=== PATIENT | female | born 1965 | race Caucasian/White ===

== ENCOUNTER 2021-08-15 18:04 | Emergency (ER) | payer OTHER, SELFPAY ==
[2021-08-15 18:20] VITALS: BP 140/80; PULSE 93; RESP 20; TEMP 37.2; O2SAT 94; BMI 43.2
--- NOTE | 2021-08-15 19:23 | CTR_ITS ---
PROCEDURE INFORMATION: Exam: CT Abdomen And Pelvis With Contrast Exam date and time: 08/15/2021 7:23 PM Age: 56 years old Clinical indication: Abdominal pain; Localized; Prior surgery; Surgery date: 6+ months; Surgery type: Hyst, gb; Patient HX: C/O lower abd/pelvic pain w nausea and diarrhea; Additional info: Abd pain TECHNIQUE: Imaging protocol: Computed tomography of the abdomen and pelvis with contrast. Sagittal and coronal reformatted images were created and reviewed. Radiation optimization: All CT scans at this facility use at least one of these dose optimization techniques: automated exposure control; mA and/or kV adjustment per patient size (includes targeted exams where dose is matched to clinical indication); or iterative reconstruction. Contrast material: OMNI 300; Contrast volume: 95 ml; Contrast route: INTRAVENOUS (IV); COMPARISON: No relevant prior studies available. RADIATION DOSE METRICS: Total DLP (mGy-cm): 1822.12 FINDINGS: Lungs: Visualized lungs are clear. Pleural spaces: No pleural effusion. Heart: Visualized portions of the heart are unremarkable. Liver: Diffuse, moderately decreased density in the liver. Findings are consistent with moderate fatty infiltration. Gallbladder and bile ducts: Patient has had a previous cholecystectomy. No biliary ductal dilatation. Pancreas: The pancreas is unremarkable. No pancreatic ductal dilatation. Spleen: The spleen is unremarkable. Adrenal glands: The right and left adrenal glands are unremarkable. Kidneys and ureters: The right and left kidneys are unremarkable. The right and left ureters are unremarkable. Stomach and bowel: Numerous diverticula in the sigmoid colon. No evidence for diverticulitis. No acute abnormality in the small bowel. The stomach is collapsed, which can limit evaluation. No focal abnormality in the stomach otherwise. Appendix: The appendix is visualized and is unremarkable. No findings to suggest acute appendicitis. Intraperitoneal space: No free intraperitoneal air. No ascites. No loculated fluid collections to suggest an abscess. Vasculature: Mild atherosclerotic changes in the visualized arteries. No evidence for aortic aneurysm or aortic dissection. Hepatic veins, portal veins, splenic vein, and SMV are patent. Lymph nodes: No lymphadenopathy. Urinary bladder: The bladder is incompletely filled, which can limit evaluation. No focal abnormality in the bladder however. Reproductive: Patient has had a previous hysterectomy. The ovaries are not definitely visualized, not an expected in a postmenopausal female. This may be due to ovarian atrophy. Alternatively, the patient may have had a previous bilateral oophorectomy. Bones/joints: Degenerative changes in the spine and hips. Soft tissues: No acute abnormality in the extra-abdominal soft tissues. CT/CT abdomen pelvis w con* [id number] IMPRESSION: 1. No acute abnormality in the abdomen or pelvis. 2. Moderate fatty infiltration of the liver. 3. Sigmoid diverticulosis. No evidence for diverticulitis. 4. Incidental/nonacute findings are listed in the report.
--- NOTE | 2021-08-15 19:24 | W.ED.ABDPA2 ---
HPI - Abdominal Pain General: Chief Complaint: Abdominal Pain Stated Complaint: abd pain Time Seen by Provider: 08/15/21 19:20 Source: patient Mode of arrival: ambulatory Limitations: no limitations History of Present Illness: HPI narrative: 56-year-old female states has been having left lower quadrant abdominal pain mild diarrhea over the last 2 days. States she had diverticulitis in the past and this feels similar. States pain is sharp in nature rates it a 7 out of 10. Denies any vomiting or improving or worsening factors. She has had some diarrhea. Denies any fevers. Denies any dysuria. Associated Symptoms: Reports diarrhea; Denies chills, dysuria and fever(s) Review of Systems Const: Denies: fever(s), chills, body aches or change in appetite Eyes: Denies: blurry vision or eye discomfort ENMT: Denies: throat pain or dental pain Card: Denies: chest pain Resp: Denies: dyspnea GI: Reports: abdominal pain and diarrhea : Denies: dysuria Musc: Denies: neck pain or back pain Skin/Breast: Denies: rash Neuro: Denies: headache(s) Psych: Denies: depression José Miguel/Lymph: Denies: easy bruising All/Imm: Denies: urticaria PFSH ED PFSH: Social History (Updated 08/07/21 @ 14:39 by Seema Wakefield LPN) Smoking and tobacco status: never smoked Physical Exam Const: COMMON NORMALS: no acute distress, patient oriented x3 and healthy appearing HENMT: COMMON NORMALS: normocephalic and atraumatic HEAD & SCALP: normocephalic and atraumatic Eye: COMMON NORMALS: Equal, round and reactive pupils present and EOMs intact bilaterally PUPIL: Yes Equal, round and reactive pupils present Neck/C-Spine: COMMON NORMALS: full ROM and supple Chest: COMMONS NORMALS: normal inspection of the chest and normal palpation of entire chest wall Resp: COMMON NORMALS: normal respiratory effort, No retractions, No use of accessory muscles and clear to auscultation bilaterally AUSCULTATION: clear to auscultation bilaterally Cardio: COMMON NORMALS: regular rate, regular rhythm and No murmurs present (Cardio) RATE: regular rate RHYTHM: regular rhythm GI: COMMON NORMALS: Normal to inspection, nondistended, normoactive bowel sounds present, non-tender and no masses PALPATION: Yes Tenderness to palpation present (GI) Details: LLQ Extremity: COMMON NORMALS: normal to inspection and full ROM Neuro: COMMON NORMALS: patient oriented x3, moves all extremities and no focal motor deficits Psych: COMMON NORMALS: mental status grossly normal, Normal thought process present and cooperative THOUGHT PROCESS: Normal thought process present Skin: COMMON NORMALS: no rashes or lesions noted and no wounds GENERAL SKIN EXAM: no rashes or lesions noted Course Vital Signs: Vital signs: Vital Signs Temperature 99.0 F 08/15/21 18:20 Pulse Rate 93 08/15/21 18:20 Respiratory Rate 20 H 08/15/21 20:36 Blood Pressure 140/80 08/15/21 18:20 Pulse Oximetry 97 08/15/21 20:36 MDM - Abdominal Pain MDM Narrative: Medical decision making narrative: Patient presents here with abdominal pain CT blood work here are all normal pain is much improved exam at discharge is benign she is to follow-up PCP and return if worsening she understands agrees to plan. Lab Data: Labs: Lab Results 08/15/21 08/15/21 08/15/21 20:00 20:15 20:15 WBC 11.3 10^3/uL H 10 ^3/uL (4.0-10.0) RBC 5.02 10^6/uL 10^6 /uL (4.1-5.3) Hgb 14.5 g/dL g/dL (11.5-15.3) Hct 46.1 % % (37.0-47.0) MCV 91.8 fl fl (81-99) MCH 28.9 pg pg (28.0-34.0) MCHC 31.5 g/dL g/dL (30.0-36.0) RDW 14.0 % % (12.1-15.1) Plt Count 376 10^3/cmm 10^3 /cmm (130-400) MPV 10.7 fL H fL (7.4-10.4) Neut % (Auto) 66.7 % % Lymph % (Auto) 24.2 % % [place] % (Auto) 6.9 % % Eos % (Auto) 0.9 % % Baso % (Auto) 0.9 % % Neut # (Auto) 7.56 10^3/uL 10^3 /uL (1.8-7.7) Lymph # (Auto) 2.7 10^3/uL 10^3/ uL (0.8-4.8) [place] # (Auto) 0.8 10^3/uL 10^3/ uL (0.2-0.9) Eos # (Auto) 0.1 10^3/uL 10^3/ uL (0.0-0.8) Baso # (Auto) 0.1 10^3/uL 10^3/ uL (0.0-0.1) Nucleated RBC % (a uto) 0 % % Nucleated RBCs # 0.0 /100WBC /100W BC Sodium 140 mmol/L mmol/L (136-145) Potassium 4.2 mmol/L mmol/L (3.5-5.1) Chloride 101 mmol/L mmol/L (98-107) Carbon Dioxide 27 mmol/L mmol/L (22-29) Anion Gap 16.2 (5-19) BUN 13 mg/dL mg/dL (6-20) Creatinine 0.8 mg/dL mg/dL (0.5-0.9) GFR Calculation 73.9 mL/min L mL/ min (90-130) Glucose 98 mg/dL mg/dL (65-115) Calculated Osmolal ity 290 mOsm/kg mOsm/ kg (285-295) Calcium 9.6 mg/dL mg/dL (8.5-10.5) Total Bilirubin 0.5 mg/dL mg/dL (0.15-1.2) AST 15 U/L U/L (0-32) ALT 21 U/L U/L (0-33) Alkaline Phosphata se 95 IU/L IU/L (35-105) Total Protein 6.8 g/dL g/dL (6.6-8.7) Albumin 4.6 g/dL g/dL (3.5-5.2) Globulin 2.2 g/dL g/dL (1.3-4.6) Lipase 18 U/L U/L (13-60) Urine Color Yellow (Yellow) Urine Appearance Clear (CLEAR) Urine pH 6.5 (5-7) Ur Specific Gravit y 1.020 (1.005-1.030) Urine Protein Neg (Negative) Urine Glucose (UA) Norm (Normal) Urine Ketones 1+ H (Negative) Urine Blood Neg (Negative) Urine Nitrate Negative (Negative) Urine Bilirubin Neg (Negative) Urine Urobilinogen Norm mg/dL mg/dL (Negative) Ur Leukocyte Charlotte ase Negative (Negative) Imaging Data ^: CT Abd/Pel: Attestation: I personally reviewed and interpreted this imaging study as follows: Radiologist's impression: 1. No acute abnormality in the abdomen or pelvis. 2. Moderate fatty infiltration of the liver. 3. Sigmoid diverticulosis. No evidence for diverticulitis. 4. Incidental/nonacute findings are listed in the report Discharge Plan Discharge Patient Disposition: Home Clinical Impression: Abdominal pain Qualifiers: Abdominal location: periumbilical Qualified Code(s): R10.33 - Periumbilical pain Condition: Stable Prescriptions: New hydrocodone-acetaminophen 5-325 mg tablet 1 tab PO Q6H PRN (Reason: pain) Qty: 14 RF: 0 ondansetron 4 mg tablet,disintegrating 4 mg PO Q6H PRN (Reason: nausea and vomiting) Qty: 14 RF: 0 No Action prednisone 20 mg tablet 20 mg PO DAILY 5 Days Qty: 5 RF: 0 albuterol sulfate 90 mcg/actuation HFA aerosol inhaler 1 inh inhalation QID PRN (Reason: shortness of breath or wheezing) Qty: 8.5 RF: 0 amoxicillin-pot clavulanate [Augmentin] 875-125 mg tablet 1 tab PO BID 5 Days Qty: 10 RF: 0 Discharge Orders: Discharge ED (Routine); Ordered 08/15/21 Ordered By: Hipolito Snow Discharge Diet: Advance as tolerated Discharge Activity: Resume usual activity Patient Instructions: Abdominal Pain (ED), Opioid Safety Coding Level of Care Code ED Branch Services Manager for Chg Fwd Exam Comprehensive
[2021-08-15 20:09] LABS: Add Urine Microscopic? NO; Charge for UA Resulting for Rev
[2021-08-15 20:10] LABS: Bilirubin Urine Neg (Negative); Blood Urine Neg (Negative); Glucose Urine UA Norm (Normal); Ketones Urine 1+ (Negative); Leukocyte Esterase Urine Negative (Negative); Nitrate Urine Negative (Negative); Protein Urine Neg (Negative); Urine Appearance Clear (CLEAR); Urine Color Yellow (Yellow); Urobilinogen Urine Norm (Negative); pH Urine 6.5 (5-7)
[2021-08-15] MEDS: iohexol 300 mg/mL 100 mL Btl IV (20:12)
[2021-08-15] MEDS: ondansetron 2 mg/ML SDV 2 mL 4 MG IVP (20:15)
[2021-08-15 20:23] VITALS: BP 151/97; O2SAT 97
[2021-08-15] MEDS: sodium chloride 0.9% 1,000 ML 999 ML IV (20:35)
[2021-08-15 20:36] VITALS: RESP 20; O2SAT 97
[2021-08-15] MEDS: morphine 4 mg/mL SDV 1 mL IVP (20:36)
[2021-08-15 20:41] LABS: Basophils # 0.1 10^3/uL (0.0-0.1); Basophils % 0.9 %; Eosinophils # 0.1 10^3/uL (0.0-0.8); Eosinophils % 0.9 %; Hematocrit 46.1 % (37.0-47.0); Hemoglobin 14.5 g/dL (11.5-15.3); Lymphocytes # 2.7 10^3/uL (0.8-4.8); Lymphocytes % 24.2 %; Mean Corpuscular HGB Conc 31.5 g/dL (30.0-36.0); Mean Corpuscular Hemoglobin 28.9 pg (28.0-34.0); Mean Corpuscular Volume 91.8 fl (81-99); Mean Platelet Volume 10.7 fL (7.4-10.4); Monocytes # 0.8 10^3/uL (0.2-0.9); Monocytes % 6.9 %; Neutrophils # 7.56 10^3/uL (1.8-7.7); Neutrophils % 66.7 %; Nucleated Red Blood Cells % 0 %; Platelet Count 376 10^3/cmm (130-400); Red Blood Count 5.02 10^6/uL (4.1-5.3); White Blood Count 11.3 10^3/uL (4.0-10.0)
[2021-08-15 20:57] LABS: Alanine Aminotransferase 21 U/L (0-33); Albumin Level 4.6 g/dL (3.5-5.2); Alkaline Phosphatase 95 IU/L (35-105); Anion Gap 16.2 (5-19); Aspartate Amino Transferase 15 U/L (0-32); Blood Urea Nitrogen 13 mg/dL (6-20); Calcium 9.6 mg/dL (8.5-10.5); Carbon Dioxide 27 mmol/L (22-29); Chloride 101 mmol/L (98-107); Globulin 2.2 g/dL (1.3-4.6); Glomerular Filtration Rate 73.9 mL/min (90-130); Glucose 98 mg/dL (65-115); Lipase 18 U/L (13-60); Osmolality Calculated 290 mOsm/kg (285-295); Potassium 4.2 mmol/L (3.5-5.1); Sodium 140 mmol/L (136-145); Total Bilirubin 0.5 mg/dL (0.15-1.2); Total Protein 6.8 g/dL (6.6-8.7)
[2021-08-15 21:00] VITALS: BP 148/83; O2SAT 98
[2021-08-15 21:23] VITALS: BP 142/81; O2SAT 96
[2021-08-15 22:02] VITALS: BP 142/81; O2SAT 96
== END 2021-08-15 21:40 | disposition home or self-care (01) ==
PROVIDERS: Emergency Provider Emergency Medicine
DX: R10.33 Periumbilical pain (principal)
CPT/HCPCS: 74177; 80053; 81003; 83690; 85025; 96361; 96374; 96375; 99284; J2270; J2405; J7030; Q9967

== ENCOUNTER 2021-08-19 17:22 | Emergency (ER) | payer OTHER, SELFPAY ==
[2021-08-19 17:51] VITALS: BP 128/86; PULSE 86; RESP 16; TEMP 36.9; O2SAT 94; BMI 41.9
[2021-08-19 20:14] LABS: Basophils # 0.1 10^3/uL (0.0-0.1); Basophils % 0.7 %; Eosinophils # 0.1 10^3/uL (0.0-0.8); Eosinophils % 1.1 %; Hematocrit 44.8 % (37.0-47.0); Hemoglobin 14.4 g/dL (11.5-15.3); Lymphocytes # 2.8 10^3/uL (0.8-4.8); Lymphocytes % 30.3 %; Mean Corpuscular HGB Conc 32.1 g/dL (30.0-36.0); Mean Corpuscular Hemoglobin 29.1 pg (28.0-34.0); Mean Corpuscular Volume 90.7 fl (81-99); Mean Platelet Volume 10.5 fL (7.4-10.4); Monocytes # 0.8 10^3/uL (0.2-0.9); Neutrophils # 5.56 10^3/uL (1.8-7.7); Neutrophils % 59.6 %; Nucleated Red Blood Cells % 0 %; Platelet Count 353 10^3/cmm (130-400); Red Blood Count 4.94 10^6/uL (4.1-5.3); Red Cell Distribution Width 14.2 % (12.1-15.1); White Blood Count 9.3 10^3/uL (4.0-10.0)
[2021-08-19 20:52] LABS: Alanine Aminotransferase 17 U/L (0-33); Albumin Level 4.3 g/dL (3.5-5.2); Alkaline Phosphatase 87 IU/L (35-105); Anion Gap 20.1 (5-19); Aspartate Amino Transferase 15 U/L (0-32); Blood Urea Nitrogen 9 mg/dL (6-20); Calcium 9.2 mg/dL (8.5-10.5); Carbon Dioxide 23 mmol/L (22-29); Chloride 101 mmol/L (98-107); Globulin 3.2 g/dL (1.3-4.6); Glomerular Filtration Rate 86.2 mL/min (90-130); Glucose 93 mg/dL (65-115); Lipase 16 U/L (13-60); Osmolality Calculated 288 mOsm/kg (285-295); Potassium 4.1 mmol/L (3.5-5.1); Sodium 140 mmol/L (136-145); Total Bilirubin 0.6 mg/dL (0.15-1.2); Total Protein 7.5 g/dL (6.6-8.7)
[2021-08-19 20:53] LABS: Lactate (Lactic Acid level) 0.9 mmol/L (0.5-2.2)
--- NOTE | 2021-08-19 21:53 | ED_ITS ---
HPI - Abdominal Pain General: Chief Complaint: Abdominal Pain Stated Complaint: Low stomach pain Time Seen by Provider: 08/19/21 21:45 History of Present Illness: HPI narrative: 56-year-old female comes in today with complaints of left lower abdominal pain. Patient reports a history of diverticulitis. Patient had a CT scan done on the that showed no signs of diverticulitis. Patient reports the pain though has persisted and she feels that she needs antibiotics to treat diverticulitis. Patient reports no fever or severe symptoms. Patient appears nontoxic. Patient appears in mild pain. Review of Systems GI: Reports: abdominal pain [facility] ED PFSH: Social History (Updated 08/07/21 @ 14:39 by Seema Wakefield LPN) Smoking and tobacco status: never smoked Physical Exam Const: COMMON NORMALS: alert Resp: COMMON NORMALS: normal respiratory effort and clear to auscultation bilaterally AUSCULTATION: clear to auscultation bilaterally Cardio: COMMON NORMALS: regular rate and regular rhythm RATE: regular rate RHYTHM: regular rhythm GI: COMMON NORMALS: Soft to palpation PALPATION: Yes Soft to palpation and Yes Tenderness to palpation present (GI) Details: LLQ Extremity: COMMON NORMALS: normal to inspection Neuro: SENSORIUM/ORIENTATION: Yes alert Skin: COMMON NORMALS: no rashes or lesions noted GENERAL SKIN EXAM: no rashes or lesions noted Course Vital Signs: Vital signs: Vital Signs Temperature 98.5 F 08/19/21 17:51 Pulse Rate 86 08/19/21 17:51 Respiratory Rate 16 08/19/21 17:51 Blood Pressure 128/86 08/19/21 17:51 Pulse Oximetry 94 08/19/21 17:51 MDM - Abdominal Pain MDM Narrative: Medical decision making narrative: 56-year-old female comes in with left lower quadrant abdominal pain. On exam abdomen is soft with some tenderness in the left lower quadrant. Vital signs are normal. Patient is afebrile. Differential diagnosis includes but not limited to diverticulitis, constipation, malingering. Laboratory values CBC and CMP were unremarkable. Reviewed the CT scan from the and it was normal. Clinically patient seems to have a diverticulitis although is probably mild. We will go ahead and treat with Cipro 500 mg twice a day for 5 to 7 days and Flagyl 500 mg twice a day for 5 to 7 days. Patient was encouraged to monitor for fever or worsening symptoms. Patient will return as needed. Lab Data: Labs: Lab Results 08/19/21 08/19/21 08/19/21 19:53 19:53 19:53 WBC 9.3 10^3/uL 10^3/ uL (4.0-10.0) RBC 4.94 10^6/uL 10^6 /uL (4.1-5.3) Hgb 14.4 g/dL g/dL (11.5-15.3) Hct 44.8 % % (37.0-47.0) MCV 90.7 fl fl (81-99) MCH 29.1 pg pg (28.0-34.0) MCHC 32.1 g/dL g/dL (30.0-36.0) RDW 14.2 % % (12.1-15.1) Plt Count 353 10^3/cmm 10^3 /cmm (130-400) MPV 10.5 fL H fL (7.4-10.4) Neut % (Auto) 59.6 % % Lymph % (Auto) 30.3 % % [place] % (Auto) 8.0 % % Eos % (Auto) 1.1 % % Baso % (Auto) 0.7 % % Neut # (Auto) 5.56 10^3/uL 10^3 /uL (1.8-7.7) Lymph # (Auto) 2.8 10^3/uL 10^3/ uL (0.8-4.8) [place] # (Auto) 0.8 10^3/uL 10^3/ uL (0.2-0.9) Eos # (Auto) 0.1 10^3/uL 10^3/ uL (0.0-0.8) Baso # (Auto) 0.1 10^3/uL 10^3/ uL (0.0-0.1) Nucleated RBC % (a uto) 0 % % Nucleated RBCs # 0.0 /100WBC /100W BC Sodium 140 mmol/L mmol/L (136-145) Potassium 4.1 mmol/L mmol/L (3.5-5.1) Chloride 101 mmol/L mmol/L (98-107) Carbon Dioxide 23 mmol/L mmol/L (22-29) Anion Gap 20.1 H (5-19) BUN 9 mg/dL mg/dL (6-20) Creatinine 0.7 mg/dL mg/dL (0.5-0.9) GFR Calculation 86.2 mL/min L mL/ min (90-130) Glucose 93 mg/dL mg/dL (65-115) Calculated Osmolal ity 288 mOsm/kg mOsm/ kg (285-295) Lactate 0.9 mmol/L mmol/L (0.5-2.2) Calcium 9.2 mg/dL mg/dL (8.5-10.5) Total Bilirubin 0.6 mg/dL mg/dL (0.15-1.2) AST 15 U/L U/L (0-32) ALT 17 U/L U/L (0-33) Alkaline Phosphata se 87 IU/L IU/L (35-105) Total Protein 7.5 g/dL g/dL (6.6-8.7) Albumin 4.3 g/dL g/dL (3.5-5.2) Globulin 3.2 g/dL g/dL (1.3-4.6) Lipase 16 U/L U/L (13-60) Discharge Plan Discharge Patient Disposition: Home Clinical Impression: Diverticulitis Condition: Stable Prescriptions: New Cipro 500 mg tablet 500 mg PO BID Qty: 14 RF: 0 metronidazole 500 mg tablet 500 mg PO BID 7 Days Qty: 14 RF: 0 No Action prednisone 20 mg tablet 20 mg PO DAILY 5 Days Qty: 5 RF: 0 albuterol sulfate 90 mcg/actuation HFA aerosol inhaler 1 inh inhalation QID PRN (Reason: shortness of breath or wheezing) Qty: 8.5 RF: 0 amoxicillin-pot clavulanate [Augmentin] 875-125 mg tablet 1 tab PO BID 5 Days Qty: 10 RF: 0 hydrocodone-acetaminophen 5-325 mg tablet 1 tab PO Q6H PRN (Reason: pain) Qty: 14 RF: 0 ondansetron 4 mg tablet,disintegrating 4 mg PO Q6H PRN (Reason: nausea and vomiting) Qty: 14 RF: 0 Discharge Orders: Discharge ED (Routine); Ordered 08/19/21 Ordered By: Onur Acosta Discharge Diet: Advance as tolerated Discharge Activity: Increase activity as tolerated Patient Instructions: Diverticulitis (ED), Diverticulitis Diet (ED) Activity Restrictions/Additional Instructions: Light diet. Drink plenty of fluids. Monitor for high fever greater than 100.4, worsening pain, or blood in vomit or stool. Return to the ER as needed. Follow-up with primary care as needed. Coding Level of Care Code ED Imaging Engineer for Ivania Smith
[2021-08-19] MEDS: ciprofloxacin 500 mg Tablet PO (22:09)
[2021-08-19] MEDS: metroNIDAZOLE 500 MG Tablet PO (22:09)
== END 2021-08-19 22:10 | disposition home or self-care (01) ==
PROVIDERS: Emergency Medicine; Emergency Provider Nurse Practitioner Family
DX: K57.92 Diverticulitis of intestine, part unspecified, without perforation or abscess without bleeding (principal)
CPT/HCPCS: 80053; 83605; 83690; 85025; 99283

== ENCOUNTER 2021-11-02 14:09 | Outpatient (CLI) | payer OTHER, SELFPAY ==
--- NOTE | 2021-11-02 14:22 | MM_ITS ---
WS: [id number] BILATERAL SCREENING 3D TOMOSYNTHESIS DIGITAL MAMMOGRAM WITH CAD HISTORY: Breast cancer screening. COMPARISON: None available. Bilateral CC and MLO views submitted. Computer aided detection analyzed. Breast composition: There are scattered areas of fibroglandular density. There are 2 adjacent nodules within the LEFT breast at a middle depth. Nodules measure about 5 mm each. These nodules are near th e 11-12 o'clock axis. There are additional benign calcifications within each breast. MM/[place] [id number] IMPRESSION: BI-RADS: 0-Incomplete: Need additional imaging evaluation FOLLOW UP: Need Additional Imaging LEFT breast: Spot compression views (CC and MLO). True ML. Ultrasound to follow if abnormality persists.
== END 2021-11-02 14:10 | disposition home or self-care (01) ==
PROVIDERS: PCP Family Medicine; Visit Provider Family Medicine
DX: Z12.31 Encounter for screening mammogram for malignant neoplasm of breast (principal)
CPT/HCPCS: 77063; 77067

== ENCOUNTER 2021-11-15 10:22 | Outpatient (CLI) | payer OTHER, SELFPAY ==
--- NOTE | 2021-11-15 10:30 | US_ITS ---
WS: [id number] ADDITIONAL VIEWS LEFT MAMMOGRAM LEFT BREAST ULTRASOUND HISTORY: LT ABNORMAL MAMMO COMPARISON: 11/02/2021 LEFT MAMMOGRAM: Spot compression views and true ML. The rounded asymmetries persist in the LEFT breast. 5 mm asymmetry in the superior breast is probably near 12:00. This is an additional asymmetry just below the nipple line which may be at 9:00. LEFT BREAST ULTRASOUND 2-D and color Doppler imaging submitted. Calcification at 9:00 with dense shadowing. There is a very small cyst at 12:00 at 1 cm from the nipp le measuring 4 x 4 by 4 mm. Additional possible cyst at 1:00 measuring 5 x 4 x 2 mm. US/US breast LT limited* [id number] IMPRESSION: BI-RADS: 3-Probably Benign FOLLOW UP: 6 Month Follow-up Recommend diagnostic follow-up in 6 months for possible ultrasound. I favor the se are probably benign cysts as they are well-circumscribed. Due to their small size they are very difficult to identify with certainty on ultrasound.
--- NOTE | 2021-11-15 10:50 | MM_ITS ---
WS: [id number] ADDITIONAL VIEWS LEFT MAMMOGRAM LEFT BREAST ULTRASOUND HISTORY: LT ABNORMAL MAMMO COMPARISON: 11/02/2021 LEFT MAMMOGRAM: Spot compression views and true ML. The rounded asymmetries persist in the LEFT breast. 5 mm asymmetry in the superior breast is probably near 12:00. This is an additional asymmetry just below the nipple line which may be at 9:00. LEFT BREAST ULTRASOUND 2-D and color Doppler imaging submitted. Calcification at 9:00 with dense shadowing. There is a very small cyst at 12:00 at 1 cm from the nipp le measuring 4 x 4 by 4 mm. Additional possible cyst at 1:00 measuring 5 x 4 x 2 mm. MM/[place] [id number] IMPRESSION: BI-RADS: 3-Probably Benign FOLLOW UP: 6 Month Follow-up Recommend diagnostic follow-up in 6 months for possible ultrasound. I favor the se are probably benign cysts as they are well-circumscribed. Due to their small size they are very difficult to identify with certainty on ultrasound.
== END 2021-11-15 10:23 | disposition home or self-care (01) ==
PROVIDERS: PCP Family Medicine; Visit Provider Family Medicine
DX: N60.02 Solitary cyst of left breast (principal); R92.8 Other abnormal and inconclusive findings on diagnostic imaging of breast
CPT/HCPCS: 76642; 77061

== ENCOUNTER 2022-01-13 18:05 | Emergency (ER) | payer OTHER, SELFPAY ==
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
[2022-01-13 18:20] VITALS: BMI 40.3
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
[2022-01-13 18:45] VITALS: BP 160/94; PULSE 110; RESP 19; O2SAT 97
[2022-01-13 21:13] VITALS: BP 143/76; PULSE 81; RESP 20; O2SAT 92
== END 2022-01-13 20:50 | disposition home or self-care (01) ==
PROVIDERS: Emergency Provider Emergency Medicine; PCP Family Medicine
DX: M79.18 Myalgia, other site (principal); V43.52XA Car driver injured in collision with other type car in traffic accident, initial encounter
CPT/HCPCS: 71045; 72125; 73030; 99283

== ENCOUNTER → 2022-01-19 11:07 | Outpatient (BNVA) | payer SELFPAY | PROVIDERS: PCP Family Medicine; Visit Provider Family Medicine | DX: U09.9 Post COVID-19 condition, unspecified (principal); R53.83 Other fatigue; J01.90 Acute sinusitis, unspecified | CPT/HCPCS: 80053; 84443; 85025; 86140 ==

== ENCOUNTER 2022-02-23 08:00 | Day surgery (SDC) | payer OTHER, SELFPAY ==
[2022-02-21 10:14] VITALS: BMI 40.3
--- NOTE | 2022-02-23 07:36 | ANES.PREANE2 ---
Pre-Anesthetic Assessment Height/Weight: Height 1.68 m Weight 113.398 kg Operation Date: 02/23/22 09:30 Proposed Procedures p Colonoscopy 87019,k57.92(Not Applicable) - Robe Tamayo MD Familial anesthetic complications: none Was Beta Adrian taken within 24 hours: N/A Was Clonidine taken within 24 hours: N/A Social No alcohol and No tobacco Exam alert, oriented x 3, clear to auscultation bilaterally and regular rate & rhythm Airway Submandibular: within normal limits Cervical ROM: within normal limits Mallampati: Class II Dentition: chipped Pulmonary None reported CV/HEM None reported None reported Hepatic None reported GI None reported Diverticulitis Metabolic None reported Musc/skel None reported Neuropsych Anxiety and Depression Long COVID Anesthetic Plan ASA status: 2 Anesthesia: Anesthesia Evaluation and MAC Other: I discussed with the patient risks, goals, and benefits of MAC and general anesthesia. We discussed spectrum of MAC anesthesia including conversion to general as well as possibility of recall of intraoperative stimuli including discomfort/pain. Patient agrees to proceed with MAC. Risk of > 500 ml blood loss (7ml/kg in children): No Medications/Allergies Home Medications Medication Instructions Recorded Confirmed Last Taken Type vortioxetine 20 mg tablet 20 mg PO DAILY #90 tabs 11/23/21 02/23/22 02/22/22 Rx meclizine 25 mg tablet 25 mg PO DAILY PRN motion sickness 12/06/21 02/21/22 Unknown Rx #90 tabs miscellaneous medical supply 1 ea miscellaneous Q2H #1 ea 01/19/22 02/21/22 Unknown Rx Allergies Allergy/AdvReac Type Severity Reaction Status Date / Time Sulfa (Sulfonamide Allergy Rash Verified 01/19/22 08:04 Antibiotics) [facility] Anesthesia Medical History Depression with anxiety Diverticulitis Surgical History (Updated 02/23/22 @ 08:59 by Robe Tamayo MD) History of cholecystectomy History of colonoscopy (02/23/22) History of esophagogastroduodenoscopy History of hysterectomy S/P cervical spinal fusion Family History Other Cancer Social History Smoking and tobacco status: never smoked Alcohol intake: never Data Anesthesia Cardiac Studies: No Data to Display
[2022-02-23 08:20] VITALS: BP 107/80; PULSE 105; RESP 18; TEMP 36.6; O2SAT 93
[2022-02-23] MEDS: sodium chloride 0.9% 1,000 ML 30 ML IV (08:31)
--- NOTE | 2022-02-23 08:33 | P.HP_ITS ---
Same Day Surgery H&P Indication for Procedure/HPI DATE OF PROCEDURE: February 23, 2022 CHIEF COMPLAINT/INDICATIONFOR SURGICAL PROCEDURE: colonoscopy PREOP DIAGNOSIS: diagnostic PLANNED PROCEDURE: Operation Date: 02/23/22 09:30 Proposed Procedures p Colonoscopy 46255,k57.92(Not Applicable) - Robe Tamayo MD Medications/Allergies* Allergies/Adverse Reactions Allergy/AdvReac Type Severity Reaction Status Date / Time Sulfa (Sulfonamide Allergy Rash Verified 01/19/22 08:04 Antibiotics) Current Medications: Generic Name Dose Route Start Last Admin Trade Name Freq PRN Reason Stop Dose Admin Sodium Chloride 1,000 mls @ 30 mls/hr 02/23/22 08:15 02/23/22 08:31 Sodium Chloride 0.9% IV 02/24/22 08:14 30 mls/hr .Q24H MANDY Administration Pertinent History/Comorbid Conditions* Medical History (Updated 01/26/22 @ 07:28 by Roni Meneses DO) Depression with anxiety Diverticulitis Surgical History (Updated 12/14/21 @ 11:29 by Robe Tamayo MD) History of cholecystectomy History of colonoscopy History of esophagogastroduodenoscopy History of hysterectomy S/P cervical spinal fusion Family History (Updated 12/14/21 @ 11:05 by Lucina Guzman MA) Cancer Social History Smoking and tobacco status: never smoked Alcohol intake: never Pertinent Exam Findings alert, oriented x 3 and regular rate & rhythm Recommendations Surgery/Procedure today Coding Level of Care Code Acute [employer] Judge for Ivania Smith
[2022-02-23 08:59] VITALS: BP 112/57; PULSE 85; RESP 16; TEMP 36.1; O2SAT 91
[2022-02-23 09:09] VITALS: BP 114/87; PULSE 77; RESP 18; O2SAT 94
--- NOTE | 2022-02-23 11:29 | ANE.PACU2 ---
Inpatient post-anesthesia follow up: Airway intact: Yes Vital signs: Temperature 97.0 F Pulse Rate 77 Respiratory Rate 18 Blood Pressure 114/87 Pulse Oximetry 94 Oxygen Delivery Me thod Room Air Oxygen Flow Rate Fraction of Inspir ed Oxygen Hydration adequate: Yes Nausea and vomiting: No Pain level: 1 Mental status: Baseline
== END 2022-02-23 09:27 | disposition home or self-care (01) ==
PROVIDERS: PCP Family Medicine; Visit Provider Surgery
PROC: 0DJD8ZZ Inspection of Lower Intestinal Tract, Via Natural or Artificial Opening Endoscopic (ICD-10-PCS; CPT 45378; principal; 2022-02-23 09:30)
DX: Z12.11 Encounter for screening for malignant neoplasm of colon (principal); K57.30 Diverticulosis of large intestine without perforation or abscess without bleeding; D12.2 Benign neoplasm of ascending colon; Z80.0 Family history of malignant neoplasm of digestive organs; F41.9 Anxiety disorder, unspecified; F32.A Depression, unspecified; Z86.16 Personal history of COVID-19
CPT/HCPCS: 45385; 88305; J2704; J7030

== ENCOUNTER 2022-05-25 13:03 | Outpatient (CLI) | payer OTHER, SELFPAY ==
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
== END 2022-05-25 13:04 | disposition home or self-care (01) ==
PROVIDERS: PCP Family Medicine; Visit Provider Family Medicine
DX: R92.8 Other abnormal and inconclusive findings on diagnostic imaging of breast (principal); R92.1 Mammographic calcification found on diagnostic imaging of breast
CPT/HCPCS: 77061

== ENCOUNTER → 2022-05-30 13:29 | Outpatient (BNVA) | payer OTHER, SELFPAY | PROVIDERS: PCP Family Medicine; Referring Provider Family Medicine; Visit Provider Podiatrist Foot & Ankle Surgery | DX: M76.61 Achilles tendinitis, right leg (principal); M77.50 Other enthesopathy of unspecified foot and ankle; M24.571 Contracture, right ankle | CPT/HCPCS: 73630 ==

== ENCOUNTER 2022-06-08 06:00 | Outpatient (RCR) | payer OTHER, SELFPAY | END 2022-06-29 23:59 | disposition home or self-care (01) | LOC: SPT 06:00 | PROVIDERS: PCP Family Medicine; Visit Provider Podiatrist Foot & Ankle Surgery | DX: M76.61 Achilles tendinitis, right leg (principal) | CPT/HCPCS: 97110; 97161 ==

== ENCOUNTER 2022-07-26 13:29 | Outpatient (CLI) | payer OTHER, SELFPAY ==
--- NOTE | 2022-07-26 13:40 | MR_ITS ---
WS: [id number] MRI RIGHT ANKLE with and without CONTRAST. COMPARISON: RIGHT foot radiograph 05/30/2022. Multiplanar, multisequence imaging is performed with and without contrast. MultiHance 20 mL IV. Marker is placed along the posterior calcaneus at the site of pain. No superficial edema or soft tiss ue abnormality. The adjacent Achilles tendon is mildly edematous at the insertion site but there is n o tear. No retraction. No thinning of the Achilles tendon. Very mild tendinopathy at the Achilles ins ertion site. No retrocalcaneal bursitis. There is mild enthesopathy along the posterior calcaneus at the site of the Achilles tendon attachment. Additional enthesopathy at the plantar fascia attachment. No edema associated with the plantar fascia. Otherwise normal appearance of the calcaneus and talus. No fluid in the ankle joint. Postcontrast images show very minimal soft tissue enhancement at the insertion of the Achilles tendon . No full-thickness tear. No abscess. Ligaments and tendons otherwise at the ankle are negative. No fluid along the tendon sheaths. MR/MR ankle RT wo/w con [id number] IMPRESSION: 1. Enthesopathy distal Achilles tendon insertion site to the calcaneus and als o at the plantar fascia to the calcaneus. 2. Mild inflammation involving the enthesopathy of the Achilles tendon. This c an be seen with rheumatoid arthritis and seronegative spondyloarthropathy' s. N o fracture or marrow edema.
[2022-07-26] MEDS: gadobenate dimeglumine 20 mL vial IV (14:48)
== END 2022-07-26 13:30 | disposition home or self-care (01) ==
LOC: RAD 13:29
PROVIDERS: PCP Family Medicine; Visit Provider Podiatrist Foot & Ankle Surgery
DX: M24.571 Contracture, right ankle (principal)
CPT/HCPCS: 73723; A9577

== ENCOUNTER 2022-11-07 07:44 | Outpatient (CLI) | payer OTHER, SELFPAY ==
--- NOTE | 2022-11-07 07:58 | MM_ITS ---
WS: [id number] DIAGNOSTIC BILATERAL DIGITAL BREAST TOMOSYNTHESIS MAMMOGRAPHY WITH CAD LEFT breast ultrasound, limited HISTORY: breast cancer screening COMPARISON: 05/25/2022, 11/15/2021 and 11/02/2021 TECHNIQUE: Bilateral craniocaudad, mediolateral oblique, and mediolateral views are submitted with to mosynthesis and SM. Spot compression views LEFT CC and MLO. Computer aided detection utilized. Breast composition: There are scattered areas of fibroglandular density. One of the nodules previousl y described in the central breast has nearly completely resolved and measures only 2 mm. The addition al nodule has very slightly increased in size now measuring 5 mm. Slightly lobulated and localizes to 12:00 middle depth. Benign calcifications also noted within each breast. LEFT breast ultrasound, limited. Lobulated cyst at 12:00, 3 cm the nipple measures 6 x 3 x 4 mm. This corresponds to the mammographic abnormality. MM/[place] [id number] IMPRESSION: BI-RADS: 2-Benign FOLLOW UP: 1 Year Follow-up 1. One of the previously described nodules in the LEFT breast has nearly compl etely resolved. 2. The additional nodule in the LEFT breast is identified by ultrasound today and a cyst.
--- NOTE | 2022-11-07 09:01 | US_ITS ---
WS: [id number] DIAGNOSTIC BILATERAL DIGITAL BREAST TOMOSYNTHESIS MAMMOGRAPHY WITH CAD LEFT breast ultrasound, limited HISTORY: breast cancer screening COMPARISON: 05/25/2022, 11/15/2021 and 11/02/2021 TECHNIQUE: Bilateral craniocaudad, mediolateral oblique, and mediolateral views are submitted with to mosynthesis and SM. Spot compression views LEFT CC and MLO. Computer aided detection utilized. Breast composition: There are scattered areas of fibroglandular density. One of the nodules previousl y described in the central breast has nearly completely resolved and measures only 2 mm. The addition al nodule has very slightly increased in size now measuring 5 mm. Slightly lobulated and localizes to 12:00 middle depth. Benign calcifications also noted within each breast. LEFT breast ultrasound, limited. Lobulated cyst at 12:00, 3 cm the nipple measures 6 x 3 x 4 mm. This corresponds to the mammographic abnormality. US/US breast LT limited* [id number] IMPRESSION: BI-RADS: 2-Benign FOLLOW UP: 1 Year Follow-up 1. One of the previously described nodules in the LEFT breast has nearly compl etely resolved. 2. The additional nodule in the LEFT breast is identified by ultrasound today and a cyst.
== END 2022-11-07 07:45 | disposition home or self-care (01) ==
PROVIDERS: PCP Family Medicine; Visit Provider Family Medicine
DX: R92.8 Other abnormal and inconclusive findings on diagnostic imaging of breast (principal); R92.1 Mammographic calcification found on diagnostic imaging of breast
CPT/HCPCS: 76642; 77062; G0279

== ENCOUNTER 2023-01-10 09:45 | Emergency (ER) | payer OTHER, SELFPAY ==
[2023-01-10 09:50] VITALS: BP 162/108; PULSE 83; RESP 18; TEMP 36.8; O2SAT 92; BMI 40.3
[2023-01-10 10:06] VITALS: BP 159/97; PULSE 77; RESP 16; O2SAT 97
--- NOTE | 2023-01-10 10:13 | XRR_ITS ---
PROCEDURE INFORMATION: Exam: XR Chest Exam date and time: 01/10/2023 10:19 AM Age: 57 years old Clinical indication: Other: Left arm numbness; Additional info: Left sided neck pain TECHNIQUE: Imaging protocol: Radiologic exam of the chest. Views: 1 view. COMPARISON: CR XR chest 1V portable [id number] 01/13/2022 7:45 PM FINDINGS: Lungs: Lungs are clear. Pleural spaces: There is no pleural effusion or pneumothorax. Heart/Mediastinum: Cardiomediastinal contours are unremarkable. Bones/joints: Lower cervical fusion noted. Bones in the thorax are unremarkable. XR/XR chest 1V portable [id number] IMPRESSION: No acute findings.
--- NOTE | 2023-01-10 10:13 | CT_ITS ---
WS: [id number] CT HEAD NONCONTRAST HISTORY: Headache with left arm numbness tingling TECHNIQUE: Contiguous axial imaging performed through the brain in 2.5 mm imaging. Bone and soft tiss ue windows. Sagittal and coronal reformats reviewed. All CT scans at [facility] use at least one of these dose optimization techniques: automated exposure control; mA and/or kV adjustment per pa tient size (includes targeted exams where dose is matched to clinical indication); or iterative recon struction. DLP: 1178.38 mGy.cm COMPARISON: None available. No acute intracranial hemorrhage, midline shift or mass effect. No atrophy or prior infarcts or herniation. Ventricles: Normal size with no hydrocephalus. Paranasal sinuses: As visualized are clear. Mastoid air cells: Well pneumatized. Calvarium and scalp: Skull is intact with no soft tissue edema or swelling. CT/CT head wo con* [id number] IMPRESSION: Negative head CT.
--- NOTE | 2023-01-10 10:13 | CT_ITS ---
WS: [id number] CT CERVICAL SPINE HISTORY: Neck pain with left arm numbness tingling and weakness TECHNIQUE: Contiguous 2.0 mm axial imaging performed through the entire cervical spine. Sagittal and coronal reformats also performed. All CT scans at [facility] use at least one of these dose o ptimization techniques: automated exposure control; mA and/or kV adjustment per patient size (include s targeted exams where dose is matched to clinical indication); or iterative reconstruction. DLP: 10.57 mGy.cm COMPARISON: 01/13/2022 Straightening of the normal cervical lordosis. Interbody spacers at C4-5, C5-6 and C6-7. Anterior cer vical fusion at C6-7. Similar to the prior study. No acute fractures are identified. C2-C3: Normal. C3-C4: Tiny central disc protrusion. Mild LEFT foraminal narrowing. C4-C5: Osteophytic ridging and facet arthritis. Mild RIGHT foraminal stenosis. C5-C6: Moderate osteophytic ridging encroaching into the central canal and LEFT foramen. Mild LEFT fo raminal stenosis. C6-C7: Osteophytic ridging. Mild encroachment upon the ventral thecal sac. No high-grade stenosis. C7-T1: Mild facet disease. Soft tissues are normal. Lung apices are clear. CT/CT cervical spin wo con* [id number] IMPRESSION: 1. No high-grade central or foraminal stenosis. Osteophytic ridging around sev eral vertebral bodies with mild encroachment into the foramina. No large disc p rotrusions. 2. Anterior cervical fusion hardware at C6-7.
--- NOTE | 2023-01-10 10:19 | ED_ITS ---
HPI - Neck Pain/Injury General: Chief Complaint: Neck Pain/Injury Stated Complaint: headache, left arm numbness Time Seen by Provider: 01/10/23 10:01 History of Present Illness: Patient is a 57-year-old female who comes to the ED with neck pain, headache and left arm numbness and weakness. Patient has a history of cervical neck pain and has surgical history of cervical spine fusion. Patient states she has had symptoms like this in the past when her neck pain was getting worse causing symptoms into her upper extremities. She states that for the past several weeks she has been having this left-sided neck pain. Neck pain is rated a 7 out of 10. Neck is nontender to palpation. Over the past week she noticed some numbness to left arm and she also describes her arm as being weak and noodle like. Denies any falls, injury or trauma to head or neck. denies any worsening or improving factors. Today patient also developed a headache just behind her left eye that she rates a 6 out of 10. Denies any vision changes, numbness tingling or weakness in face or lower extremities. She denies any chest pain, shortness of breath, fevers, nausea/vomiting, abdominal pain, blad travon or bowel symptoms. Associated symptoms: Reports headache(s); Denies nausea Review of Systems Const: Denies: fever(s), chills or fatigue Eyes: Denies: change in vision or eye discomfort ENMT: Denies: throat pain, odynophagia, nasal discharge or nasal congestion Card: Denies: chest pain, palpitations, edema, swelling of feet/ankles, dyspnea on exertion or orthopnea Resp: Denies: dyspnea, productive cough or non-productive cough GI: Denies: abdominal pain, nausea, vomiting, diarrhea, constipation or hematochezia : Denies: flank pain, dysuria or hematuria Musc: Reports: neck pain; Denies: back pain or extremity swelling Skin/Breast: Denies: rash or new lesions Neuro: Reports: headache(s), numbness in extremities (Left arm) and weakness in extremities (Left arm) [facility] ED PFSH: Medical History Depression with anxiety Diverticulitis Surgical History History of cholecystectomy History of colonoscopy (02/23/22) History of esophagogastroduodenoscopy History of hysterectomy S/P cervical spinal fusion Family History Other Cancer Social History Smoking and tobacco status: never smoked Alcohol intake: never Substance/Drug Use: never Female Reproductive History: Spontaneous abortions: No Physical Exam Const: COMMON NORMALS: patient oriented x3 and alert GENERAL APPEARANCE: cooperative HENMT: COMMON NORMALS: normocephalic HEAD & SCALP: normocephalic MOUTH: Normal oral and palatal mucosa present THROAT: posterior oropharynx normal and uvula midline Eye: COMMON NORMALS: Equal, round and reactive pupils present, EOMs intact bilaterally and conjunctivae normal CONJUNCTIVA: Yes conjunctivae normal PUPIL: Yes Equal, round and reactive pupils present Neck/C-Spine: COMMON NORMALS: supple GENERAL: Yes normal visual inspection CERVICAL SPINE: No Cervical spine tenderness, No Paracervical muscle ten derness and No Trapezius muscle tenderness Resp: COMMON NORMALS: normal respiratory effort, No retractions, No use of accessory muscles and clear to auscultation bilaterally AUSCULTATION: clear to auscultation bilaterally Cardio: COMMON NORMALS: regular rate, regular rhythm, S1 normal heart sound present, S2 normal heart sound present, No gallops present (Cardio), No clicks present (Cardio), No murmurs present (Cardio) and Peripheral pulses 2+ throughout RATE: regular rate RHYTHM: regular rhythm HEART SOUNDS: S1 normal heart sound present and S2 normal heart sound present PERIPHERAL PULSES: Peripheral pulses 2+ throughout GI: COMMON NORMALS: Normal to inspection, nondistended, normoactive bowel sounds present, Soft to palpation, non-tender and no masses PALPATION: Yes Soft to palpation : COMMON NORMALS: Yes no CVA tenderness BLADDER/KIDNEY EXAM: Yes no CVA tenderness Back/Pelvis: COMMON NORMALS: no CVA tenderness Extremity: COMMON NORMALS: normal to inspection Neuro: COMMON NORMALS: patient oriented x3, CN's II-XII intact bilaterally, moves all extremities, no focal motor deficits and no sensory deficits noted SENSORIUM/ORIENTATION: Yes alert COORDINATION/BALANCE: [id number] test normal SPEECH: speech normal GAIT: Yes Normal gait present MOTOR EXAM: 5/5 motor strength present throughout COORDINATION: [id number] test normal Skin: GENERAL SKIN EXAM: dry skin Course Vital Signs: Vital signs: Vital Signs Temperature 98.2 F 01/10/23 09:50 Pulse Rate 55 L 01/10/23 12:35 Respiratory Rate 16 01/10/23 10:59 Blood Pressure 143/80 01/10/23 12:35 Pulse Oximetry 95 01/10/23 12:35 Oxygen Delivery Me thod Room Air 01/10/23 10:59 MDM - Neck Pain/Injury Medical Decision Making Patient is a 57-year-old female who comes to the ED with neck pain, headache and left arm numbness and weakness. Patient has a history of cervical neck pain and has surgical history of cervical spine fusion. Patient states she has had symptoms like this in the past when her neck pain was getting worse causing symptoms into her upper extremities. She states that for the past several weeks she has been having this left-sided neck pain. Neck pain is rated a 7 out of 10. Neck is nontender to palpation. Over the past week she noticed some num bness to left arm and she also describes her arm as being weak and noodle like. Denies any falls, injury or trauma to head or neck. denies any worsening or improving factors. Today patient also developed a headache just behind her left eye that she rates a 6 out of 10. Denies any vision changes, numbness tingling or weakness in face or lower extremities. She denies any chest pain, shortness of breath, fevers, nausea/vomiting, abdominal pain, bladder or bowel symptoms. Vitals are stable. Patient appears nontoxic in no acute distress or pain. Rest of exam is benign and neuro exam shows no deficits. Labs are all unremarkable and troponin negative. EKG showed normal sinus rhythm and no ST segment elevation or depression seen. Cervical spine CT showed no high-grade central or foraminal stenosis and no acute fractures. Chest x-ray was negative and head CT showed no acute findings. Patient was diagnosed with neck pain and headache and was stable for discharge home. She was sent home with a prescription for muscle relaxer, steroid and pain med. Placed an order for case management for patient to be referred to Dr. Kendall for follow-up on cervical neck pain given her history of cervical spinal fusion. Return to ED precautions given. Patient understood and agreed with plan. Lab Data I reviewed the patient's lab results. 01/10/23 10:05 01/10/23 10:05 Radiology Impressions Cervical Spine CT 01/10/23 10:13 IMPRESSION: 1. No high-grade central or foraminal stenosis. Osteophytic ridging around several vertebral bodies with mild encroachment into the foramina. No large disc protrusions. 2. Anterior cervical fusion hardware at C6-7. Chest X-Ray 01/10/23 10:13 IMPRESSION: No acute findings. Head CT 01/10/23 10:13 IMPRESSION: Negative head CT. Laboratory Results WBC 6.2 10^3/uL (4.0-10.0) 01/10/23 10:05 RBC 4.37 10^6/uL (4.1-5.3) 01/10/23 10:05 Hgb 12.5 g/dL (11.5-15.3) 01/10/23 10:05 Hct 39.4 % (37.0-47.0) 01/10/23 10:05 MCV 90.2 fl (81-99) 01/10/23 10:05 MCH 28.6 pg (28.0-34.0) 01/10/23 10:05 MCHC 31.7 g/dL (30.0-36.0) 01/10/23 10:05 RDW 15.5 % (12.1-15.1) H 01/10/23 10:05 Plt Count 384 10^3/cmm (130-400) 01/10/23 10:05 MPV 10.2 fL (7.4-10.4) 01/10/23 10:05 Neut % (Auto) 50.9 % 01/10/23 10:05 Lymph % (Auto) 37.0 % 01/10/23 10:05 [place] % (Auto) 7.7 % 01/10/23 10:05 Eos % (Auto) 2.6 % 01/10/23 10:05 Baso % (Auto) 1.3 % 01/10/23 10:05 Neut # (Auto) 3.18 10^3/uL (1.8-7.7) 01/10/23 10:05 Lymph # (Auto) 2.3 10^3/uL (0.8-4.8) 01/10/23 10:05 [place] # (Auto) 0.5 10^3/uL (0.2-0.9) 01/10/23 10:05 Eos # (Auto) 0.2 10^3/uL (0.0-0.8) 01/10/23 10:05 Baso # (Auto) 0.1 10^3/uL (0.0-0.1) 01/10/23 10:05 Nucleated RBC % (auto) 0 % 01/10/23 10:05 Nucleated RBCs # 0.0 /100WBC 01/10/23 10:05 Sodium 139 mmol/L (136-145) 01/10/23 10:05 Potassium 4.3 mmol/L (3.5-5.1) 01/10/23 10:05 Chloride 103 mmol/L (98-107) 01/10/23 10:05 Carbon Dioxide 24 mmol/L (22-29) 01/10/23 10:05 Anion Gap 16.3 (5-19) 01/10/23 10:05 BUN 12 mg/dL (6-20) 01/10/23 10:05 Creatinine 0.6 mg/dL (0.5-0.9) 01/10/23 10:05 GFR Calculation 102.7 mL/min (90-130) 01/10/23 10:05 Glucose 106 mg/dL (65-115) 01/10/23 10:05 Calculated Osmolality 288 mOsm/kg (285-295) 01/10/23 10:05 Calcium 9.6 mg/dL (8.5-10.5) 01/10/23 10:05 Total Bilirubin 0.3 mg/dL (0.15-1.2) 01/10/23 10:05 AST 18 U/L (0-32) 01/10/23 10:05 ALT 23 U/L (0-33) 01/10/23 10:05 Alkaline Phosphatase 92 U/L (35-105) 01/10/23 10:05 Troponin T Baseline 6 ng/L (0-10) 01/10/23 10:05 Troponin T 120 Minute 6.20 ng/L (0-10) 01/10/23 12:13 Delta Troponin T 0.2 ABS# (0-10) 01/10/23 12:13 Total Protein 6.8 g/dL (6.6-8.7) 01/10/23 10:05 Albumin 4.3 g/dL (3.5-5.2) 01/10/23 10:05 Globulin 2.5 g/dL (1.3-4.6) 01/10/23 10:05 EKG Data EKG 1: I personally reviewed and interpreted this EKG as follows: EKG interpretation date: 01/10/23 Interpretation: Normal sinus rhythm, [address] segment elevation or depression seen. Discharge Plan Discharge Patient Disposition: Home Clinical Impression: Neck pain Headache Qualifiers: Headache type: unspecified Headache chronicity pattern: acute headache Intractability: not intractable Qualified Code(s): R51.9 - Headache, unspecified Condition: Stable Prescriptions: New Medrol (Oscar) 4 mg tablets,dose pack See Rx Instructions .ROUTE .COMPLEX Qty: 21 0RF Rx Instructions: orally per package directions meloxicam 15 mg tablet 15 mg PO DAILY PRN (Reason: pain) Qty: 20 0RF methocarbamol 750 mg tablet 750 mg PO Q8H PRN (Reason: Muscle spasms and pain) Qty: 20 0RF No Action miscellaneous medical supply Misc 1 ea miscellaneous Q2H Qty: 1 0RF Rx Instructions: Please issue incentive spirometer to use q2 hours. vortioxetine 20 mg tablet 20 mg PO DAILY Qty: 90 1RF meclizine 25 mg tablet 25 mg PO DAILY PRN (Reason: motion sickness) Qty: 90 1RF alprazolam 0.25 mg tablet 0.25 mg PO BID PRN (Reason: anxiety) Qty: 60 0RF methylprednisolone [Medrol (Oscar)] 4 mg tablets,dose pack See Rx Instructions PO PER PKG DIR Qty: 21 0RF Rx Instructions: PO PER PKG DIR venlafaxine 150 mg capsule,extended release 24hr See Rx Instructions .ROUTE .COMPLEX Qty: 90 1RF Dose Instruction: TAKE ONE CAPSULE BY MOUTH EVERY DAY Rx Instructions: TAKE ONE CAPSULE BY MOUTH EVERY DAY Discharge Orders: Discharge ED (Routine); Ordered 01/10/23 Ordered By: Jose Manuel Ace Referrals: Roni Meneses, [Primary Care Provider] - Discharge Diet: Regular Discharge Activity: Increase activity as tolerated Patient Instructions: Neck Pain (ED), Opioid Safety Activity Restrictions/Additional Instructions: Follow-up with medical provider as directed. Case management should contact Neck several days to set up an appointment with Dr. Kendall for further evaluation of cervical neck pain. Take medications as prescribed. Return to the ER or your medical provider if condition worsens. Please read and understand discharge instructions. Thank you for choosing [facility] for your healthcare needs today. Please realize this is an emergency room and that we are providing you with a medical screening exam and this may not be complete and all inclusive of all the testing and or work up that you may need to determine your ailment or severity of your illness. It is very important that you follow up as instructed or that you return to the Emergency Department should you have concerns or if your condition changes or worsens in any way. Coding Level of Care Code ED Wage Hand for Ivania Smith
[2023-01-10 10:25] LABS: Basophils # 0.1 10^3/uL (0.0-0.1); Basophils % 1.3 %; Eosinophils # 0.2 10^3/uL (0.0-0.8); Eosinophils % 2.6 %; Hematocrit 39.4 % (37.0-47.0); Hemoglobin 12.5 g/dL (11.5-15.3); Lymphocytes # 2.3 10^3/uL (0.8-4.8); Mean Corpuscular HGB Conc 31.7 g/dL (30.0-36.0); Mean Corpuscular Hemoglobin 28.6 pg (28.0-34.0); Mean Corpuscular Volume 90.2 fl (81-99); Mean Platelet Volume 10.2 fL (7.4-10.4); Monocytes # 0.5 10^3/uL (0.2-0.9); Monocytes % 7.7 %; Neutrophils # 3.18 10^3/uL (1.8-7.7); Neutrophils % 50.9 %; Nucleated Red Blood Cells % 0 %; Platelet Count 384 10^3/cmm (130-400); Red Blood Count 4.37 10^6/uL (4.1-5.3); Red Cell Distribution Width 15.5 % (12.1-15.1); White Blood Count 6.2 10^3/uL (4.0-10.0)
--- NOTE | 2023-01-10 10:25 | ECG_ITS ---
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 Measurements Intervals [place] Rate: 74 P: 53 [place]: 148 QRS: 57 QRSD: 88 T: 40 QT: 358 QTc: 398 Interpretive Statements SINUS RHYTHM No previous ECG available for comparison Electronically Signed On 01-10-2023 16:35:45 CDT by Av Arellano M.D. [id number]
[2023-01-10 10:45] LABS: Alanine Aminotransferase 23 U/L (0-33); Albumin Level 4.3 g/dL (3.5-5.2); Alkaline Phosphatase 92 U/L (35-105); Anion Gap 16.3 (5-19); Aspartate Amino Transferase 18 U/L (0-32); Blood Urea Nitrogen 12 mg/dL (6-20); Calcium 9.6 mg/dL (8.5-10.5); Carbon Dioxide 24 mmol/L (22-29); Chloride 103 mmol/L (98-107); Globulin 2.5 g/dL (1.3-4.6); Glomerular Filtration Rate 102.7 mL/min (90-130); Glucose 106 mg/dL (65-115); Osmolality Calculated 288 mOsm/kg (285-295); Potassium 4.3 mmol/L (3.5-5.1); Sodium 139 mmol/L (136-145); Total Bilirubin 0.3 mg/dL (0.15-1.2); Total Protein 6.8 g/dL (6.6-8.7)
[2023-01-10 10:47] LABS: Troponin(5th) Baseline 6 ng/L (0-10)
[2023-01-10] MEDS: ondansetron 2 mg/ML SDV 2 mL 4 MG IVP (10:49)
[2023-01-10] MEDS: morphine 4 mg/mL SDV 1 mL IVP (10:49)
[2023-01-10 10:59] VITALS: BP 146/88; PULSE 61; RESP 16; O2SAT 92
[2023-01-10] MEDS: oxyCODONE-APAP 5-325 mg Tablet 1 TAB PO (12:23)
[2023-01-10 12:35] VITALS: BP 143/80; PULSE 55; O2SAT 95
[2023-01-10 12:51] LABS: Troponin 5 2HR Delta 0.2 ABS# (0-10)
--- NOTE | 2023-01-10 13:54 | DCPLANNER ---
Addendum entered by Orly Pickett 01/12/23 09:57: Patient had a follow up appointment scheduled with ortho - patient did attend appointment. Original Note: consumer lending manager had message to schedule a follow up appointment for patient with ortho. consumer lending manager sent patients information to the front office staff at ortho. Patients information will be printed and reviewed. Clinic will call patient with appointment information.
--- NOTE | 2023-01-10 16:13 | ECG_ITS ---
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 Measurements Intervals [place] Rate: 55 P: 31 [place]: 141 QRS: 59 QRSD: 92 T: 51 QT: 402 QTc: 386 Interpretive Statements SINUS BRADYCARDIA Compared to ECG 01/10/2023 10:25:23 Sinus rhythm no longer present Electronically Signed On 01-10-2023 16:44:07 CDT by Av Arellano M.D. [id number]
== END 2023-01-10 12:37 | disposition home or self-care (01) ==
PROVIDERS: Emergency Provider Physician Assistant; PCP Family Medicine
DX: M54.2 Cervicalgia (principal); R51.9 Headache, unspecified
CPT/HCPCS: 36415; 70450; 71045; 72125; 80053; 84484; 85025; 93005; 96374; 96375; 99285; J2270; J2405

== ENCOUNTER → 2023-01-12 09:19 | Outpatient (BNVA) | payer OTHER, SELFPAY | PROVIDERS: PCP Family Medicine; Referring Provider Physician Assistant; Visit Provider Physician Assistant | DX: M54.2 Cervicalgia (principal) | CPT/HCPCS: 72050 ==

== ENCOUNTER → 2023-11-09 11:04 | Outpatient (BNVA) | payer OTHER, SELFPAY | PROVIDERS: PCP Family Medicine; Visit Provider Family Medicine | DX: F41.8 Other specified anxiety disorders; I10 Essential (primary) hypertension; F41.9 Anxiety disorder, unspecified; F32.A Depression, unspecified; R79.89 Other specified abnormal findings of blood chemistry; E55.9 Vitamin D deficiency, unspecified | CPT/HCPCS: 80053; 80061; 82306; 82607; 84443; 85025 ==

== ENCOUNTER 2023-11-30 07:48 | Outpatient (CLI) | payer OTHER, SELFPAY ==
--- NOTE | 2023-11-30 08:07 | MM_ITS ---
WS: [id number] BILATERAL 3D TOMOSYNTHESIS DIGITAL SCREENING MAMMOGRAPHY WITH CAD CLINICAL INFORMATION: SCREENING HISTORY: Screening mammogram. History of breast reduction COMPARISON: 2022 TECHNIQUE: Bilateral CC and MLO views. FINDINGS: Scattered fibroglandular densities bilaterally. No suspicious focal mass, asymmetry, calcifications, or architectural distortion. No evidence of malignancy. Benign calcification in the LEFT breast. A fe w incidental punctate calcifications. MM/[place] [id number] IMPRESSION: BI-RADS: 2-Benign FOLLOW UP: 1 Year Follow-up Recommend return to annual screening mammography.
== END 2023-11-30 07:49 | disposition home or self-care (01) ==
LOC: RAD 07:48
PROVIDERS: PCP Family Medicine; Visit Provider Family Medicine
DX: Z12.31 Encounter for screening mammogram for malignant neoplasm of breast (principal); R92.323 Mammographic fibroglandular density, bilateral breasts
CPT/HCPCS: 77063; 77067

== ENCOUNTER 2024-01-05 07:34 | Outpatient (RCR) | payer OTHER, SELFPAY | END 2024-01-28 23:59 | disposition home or self-care (01) | LOC: SPT 07:34 | PROVIDERS: PCP Family Medicine; Visit Provider Family Medicine | DX: H81.10 Benign paroxysmal vertigo, unspecified ear (principal) | CPT/HCPCS: 95992; 97161 ==

== ENCOUNTER → 2024-04-22 10:05 | Outpatient (BNVA) | payer OTHER, SELFPAY | PROVIDERS: PCP Family Medicine; Visit Provider Nurse Practitioner Family | DX: R09.81 Nasal congestion (principal) | CPT/HCPCS: 87426 ==

== ENCOUNTER → 2024-06-14 13:00 | Outpatient (BNVA) | payer OTHER, SELFPAY | PROVIDERS: PCP Family Medicine; Visit Provider Family Medicine | DX: I10 Essential (primary) hypertension; F41.9 Anxiety disorder, unspecified; F32.A Depression, unspecified | CPT/HCPCS: 80053; 82652 ==

== ENCOUNTER 2024-10-24 09:14 | Outpatient (CLI) | payer OTHER, SELFPAY ==
--- NOTE | 2024-10-24 09:24 | XR_ITS ---
WS: [id number] Exam: XR shoulder RT min 2V* [id number] Date/Time of Exam: 10/24/2024 9:28 AM Reason For Exam: chronic right shouler pain No fracture. Soft tissue calcification above the humeral head that might indicate calcific tendinitis and/or bursitis. Very slight DJD of the AC joint and the greater tuberosity of the humerus. XR/XR shoulder RT min 2V* [id number] IMPRESSION: 1. Soft tissue calcification that might indicate calcific bursitis and/or tendi nitis. Slight degenerative changes.
== END 2024-10-24 09:15 | disposition home or self-care (01) ==
PROVIDERS: PCP Family Medicine; Visit Provider Family Medicine
DX: M25.511 Pain in right shoulder (principal); G89.29 Other chronic pain; M79.89 Other specified soft tissue disorders
CPT/HCPCS: 73030

== ENCOUNTER → 2024-12-05 15:16 | Outpatient (BNVA) | payer OTHER, SELFPAY | PROVIDERS: PCP Family Medicine; Visit Provider Family Medicine | DX: N89.8 Other specified noninflammatory disorders of vagina (principal) | CPT/HCPCS: 81513; 87481; 87491; 87591; 87661 ==

== ENCOUNTER 2024-12-10 07:55 | Outpatient (CLI) | payer OTHER, SELFPAY ==
--- NOTE | 2024-12-10 08:00 | MM_ITS ---
WS: [id number] BILATERAL 3D TOMOSYNTHESIS DIGITAL SCREENING MAMMOGRAPHY WITH CAD CLINICAL INFORMATION: screening HISTORY: Screening mammogram. No current complaints. History of breast reduction COMPARISON: 2023 TECHNIQUE: Bilateral CC and MLO views. FINDINGS: Scattered fibroglandular densities bilaterally. No suspicious focal mass, asymmetry, calcifications, or architectural distortion. No evidence of malignancy. Dystrophic calcifications LEFT breast. Lucent centered calcifications. MM/MM scr tomosynthesis [id number] IMPRESSION: DENSITY: There are scattered areas of fibroglandular density. BI-RADS: 2 - Benign. FOLLOW UP: 1 Year Follow-up Recommend return to annual screening mammography.
== END 2024-12-10 07:56 | disposition home or self-care (01) ==
PROVIDERS: PCP Family Medicine; Visit Provider Family Medicine
DX: Z12.31 Encounter for screening mammogram for malignant neoplasm of breast (principal); R92.323 Mammographic fibroglandular density, bilateral breasts; R92.1 Mammographic calcification found on diagnostic imaging of breast
CPT/HCPCS: 77063; 77067

== ENCOUNTER 2025-01-01 08:30 | Outpatient (RCR) | payer OTHER, SELFPAY | END 2025-01-27 23:59 | disposition home or self-care (01) | LOC: SPT 08:30 | PROVIDERS: PCP Family Medicine; Visit Provider Family Medicine | DX: M25.511 Pain in right shoulder (principal); G89.29 Other chronic pain | CPT/HCPCS: 97110; 97161 ==

== ENCOUNTER 2025-01-28 05:00 | Outpatient (RCR) | payer OTHER, SELFPAY | END 2025-02-27 23:59 | disposition home or self-care (01) | LOC: SPT 05:00 | PROVIDERS: PCP Family Medicine; Visit Provider Family Medicine | DX: M25.511 Pain in right shoulder (principal); G89.29 Other chronic pain | CPT/HCPCS: 97110 ==

== ENCOUNTER → 2025-03-06 09:21 | Outpatient (BNVA) | payer OTHER, SELFPAY | PROVIDERS: PCP Family Medicine; Visit Provider Podiatrist Foot & Ankle Surgery | DX: M25.571 Pain in right ankle and joints of right foot (principal); M79.671 Pain in right foot; M76.61 Achilles tendinitis, right leg; M77.51 Other enthesopathy of right foot and ankle; M24.571 Contracture, right ankle | CPT/HCPCS: 73610 ==

== ENCOUNTER → 2025-03-12 11:00 | Outpatient (BNVA) | payer OTHER, SELFPAY | PROVIDERS: PCP Family Medicine; Visit Provider Student in an Organized Health Care Education/Training Program | DX: M25.511 Pain in right shoulder (principal); G89.29 Other chronic pain; M75.41 Impingement syndrome of right shoulder | CPT/HCPCS: 73030 ==

== ENCOUNTER → 2025-03-20 14:30 | Outpatient (BNVA) | payer OTHER, SELFPAY | PROVIDERS: PCP Family Medicine; Visit Provider Family Medicine | DX: E53.8 Deficiency of other specified B group vitamins (principal); M62.81 Muscle weakness (generalized); R82.90 Unspecified abnormal findings in urine; W57.XXXA Bitten or stung by nonvenomous insect and other nonvenomous arthropods, initial encounter; Z13.6 Encounter for screening for cardiovascular disorders; E55.9 Vitamin D deficiency, unspecified | CPT/HCPCS: 80053; 81000; 82306; 82607; 83735; 84443; 85025; 86618; 86666; 86757; 87086 ==

== ENCOUNTER 2025-03-25 07:44 | Outpatient (CLI) | payer OTHER, SELFPAY ==
--- NOTE | 2025-03-25 08:00 | MR_ITS ---
WS: [id number] MRI RIGHT SHOULDER HISTORY: right shoulder pain, hx of SLAP tear, rule out rotator cuff COMPARISON: Radiograph 03/12/2025 TECHNIQUE: Multiplanar sequences of the shoulder joint are submitted. Moderate AC joint arthritis. AC joint is narrowed with fluid along the inferior articulation. Small amount of fluid in the subacromial and subdeltoid bursa. Enthesopathy along the distal undersurface of the acromion with mild subacromial impingement. No os acromion. Biceps tendon is present in the bicipital groove. No tear identified. Mild narrowing of the glenohumeral joint. Small subchondral cysts in the posterior lateral humeral head near the rotator cuff insertion site. No significant joint effusion. High-grade supraspinatus tendon tear. This is near complete full-thickness tear extending along the bursal surface. This tear is just distal to the subacromial impingement enthesopathy. Width of this tear is 5.9 mm. There is additional tendinopathy in the more distal tendon. Calcific tendinitis in the distal supraspinatus tendon. The calcific deposit measures 7.5 mm. No muscle atrophy or edema. Subscapularis tendon is intact. 5 mm insertion site tear of the infraspinatus tendon. Superior anterior labral tear is identified. This tear does appear to extend into the biceps anchor. MR/MR shoulder RT wo con* [id number] IMPRESSION: 1. High-grade bursal surface supraspinatus tendon tear. Near complete full-thi ckness tear just distal to the subacromial impingement. 2. Additional 5 mm insertion site tear of the infraspinatus tendon. 3. Moderate AC joint arthritis. 4. Distal biceps tendon calcific tendinitis. 5. Superior anterior labral tear with minimal extension into the biceps anchor . 6. No rotator cuff muscle atrophy or edema.
== END 2025-03-25 07:45 | disposition home or self-care (01) ==
LOC: RAD 07:45
PROVIDERS: PCP Family Medicine; Visit Provider Student in an Organized Health Care Education/Training Program
DX: M25.511 Pain in right shoulder (principal); G89.29 Other chronic pain; M75.41 Impingement syndrome of right shoulder; S46.011A Strain of muscle(s) and tendon(s) of the rotator cuff of right shoulder, initial encounter; X58.XXXA Exposure to other specified factors, initial encounter; M19.011 Primary osteoarthritis, right shoulder; S43.431A Superior glenoid labrum lesion of right shoulder, initial encounter
CPT/HCPCS: 73221

== ENCOUNTER 2025-04-21 05:50 | Day surgery (SDC) | payer OTHER, SELFPAY ==
[2025-04-21] VITALS (10 sets, daily range): BP systolic 121–148; BP diastolic 77–90; PULSE 72–90; RESP 16–23; TEMP 35.6–36.2; O2SAT 93–100; BMI 37.9
--- NOTE | 2025-04-21 06:54 | P.HPUD_ITS ---
Surgery/Procedure H&P Update DATE OF PROCEDURE: April 21, 2025 DATE H&P PERFORMED: 04/03/25 H&P UPDATE INFORMATION: I have reviewed H&P completed within last 30 days, I have examined patient prior to procedure, No changes to prior documentation, H&P is in [facility] EMR on date indicated and Risks and benefits of the procedure reviewed PREOP DIAGNOSIS: Right Achilles tendinitis PLANNED PROCEDURE: Operation Date: 04/21/25 07:00 Proposed Procedures p Secondary RIGHT Achilles Tendon Repair(Right) - Elijah Gutierrez DPM s RIGHT Exostectomy Calcaneus(Right) - Elijah Gutierrez DPM
[2025-04-21] MEDS: ceFAZolin 2,000 mg SDV 2000 MG IVP (07:15)
--- NOTE | 2025-04-21 07:15 | P.ANESASSM_ITS ---
Pre-Anesthetic Assessment Height/Weight: Height 1.68 m Weight 106.594 kg Temp Pulse Resp BP Pulse Ox O2 Del Method 96.7 F L 72 18 138/85 93 Room Air 04/21/25 06:13 04/21/25 06:13 04/21/25 06:13 04/21/25 06:13 04/21/25 06:13 04/21/25 06:13 Preop Diagnosis: Right Achilles tendinitis Operation Date: 04/21/25 07:00 Proposed Procedures p Secondary RIGHT Achilles Tendon Repair(Right) - Elijah Gutierrez DPM s RIGHT Exostectomy Calcaneus(Right) - Elijah Gutierrez DPM Familial anesthetic complications: None Was Beta Adrian taken within 24 hours: N/A Was Clonidine taken within 24 hours: N/A Last intake: Intake Last Liquid Date 04/20/25 Last Liquid Time 20:00 Last Solid Date 04/20/25 Last Solid Time 20:00 Social No alcohol and No tobacco Exam alert, oriented x 3, clear to auscultation bilaterally and regular rate & rhythm Airway Mallampati: Class II Dentition: full CV/HEM Hypertension Anesthetic Plan ASA status: 2 Anesthesia: General and Regional (specify below) Risk of > 500 ml blood loss (7ml/kg in children): No Medications/Allergies Home Medications ?Medication ?Instructions ?Recorded ?Confirmed ?Last Taken ?Type alprazolam 0.25 mg tablet 0.25 mg PO BID PRN anxiety # 60 tabs 01/17/23 04/17/25 03/05/25 Rx rizatriptan 10 mg disintegrating See Rx Instructions P O .COMPLEX 01/17/23 04/17/25 03/05/25 Rx tablet ([employer]NAGER) #20 tabs venlafaxine 150 mg tablet,extended 150 mg PO DAILY #90 tabs 11/12/24 04/21/25 04/21/25 Rx release 24 hr losartan 25 mg tablet 25 mg PO DAILY #90 tabs 05/0 01/2204/17/25 04/20/25 Rx knee scooter #1 ea 04/03/25 04/16/25 Unkn own Rx hydrocodone 5 mg-acetaminophen 325 1 tab PO Q6H PRN pa in #28 tabs 04/21/25 Unknown Rx mg tablet meclizine 25 mg tablet 1 mg PRN Vertigo 04/21/25 0 03/05/25 History Allergies Allergy/AdvReac Type Severity Reaction Status Date / Time ciprofloxacin (From Cipro) Allergy Intermediate ALGY-Rash Verified 04/16/25 14:05 Sulfa (Sulfonamide Allergy Rash Verified 04/03/25 06:49 Antibiotics) Current Medications Generic Name Dose Route Start Last Admin Trade Name Freq PRN Reason Stop Dose Admin Sodium Chloride 1,000 mls @ 30 mls/hr 04/21/25 06:00 04/21/25 06:25 Sodium Chloride 0.9% IV 04/22/25 05:59 30 mls/hr .Q24H MANDY Administration PFSH Anesthesia Medical History (Updated 04/20/25 @ 21:05 by Justyn Ace DO) Diverticulitis Depression with anxiety Surgical History History of bilateral breast reduction surgery 1997 S/P cervical spinal fusion History of hysterectomy History of cholecystectomy History of esophagogastroduodenoscopy History of colonoscopy (02/23/22) Family History Other Cancer Social History Smoking and tobacco/nicotine status: current some day tobacco/nicotine user Alcohol intake: never Substance/Drug Use: current Substance/Drug use frequency: daily Female Reproductive History Spontaneous abortions: No Anesthesia Procedures Nerve Block Nerve Block 1: Main Anesthesia: general anesthesia Time Out Performed: Yes Consent: requested by attending/covering physician, from patient, from other, risks and benefits reviewed and patient agrees to proceed Nerve block location: popliteal (R) Anesthesia monitors applied: pulse oximetry, EKG, BP cuff and oxygen Anesthetic Used: ropivicaine 0.5% (30 ml) and with decadron ( 4 mg) Ultrasound used to: recognize landmarks and visualize and ID femerol nerve Interscalene/Femoral BLK: 4 stimuplex 21 g needle used for position and inplane approach, visualize local anesthetic spread and no vascular puncture identified Injection: neg aspiration of heme Patient Tolerated Procedure: well Complications: none
--- NOTE | 2025-04-21 08:53 | PM.OP ---
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 Secondary repair right Achilles CPT 38830 2. Right calcaneal exostectomy CPT 08338 Implants: Arthrex speed bridge Specimens removed: None Surgeon: Dr. Elijah Gutierrez DPM Line Installer Trolley: Quinn Estimated blood loss: 2 cc Tourniquet time: 68 minutes Complications: None Patient is a 59-year-old female that has a history of right Achilles tendinitis with retrocalcaneal bone spur. The patient has had the aforementioned chief complaint for some time. Conservative treatment measures have been attempted and the patient has opted for surgical intervention at this time. A lengthy discussion regarding the procedure, including risks and complications has been had with the patient and is noted in the recent clinic note. Written and verbal consent have been obtained. All patient questions have been answered to the patient?s satisfaction. No written or verbal guarantees have been given or implied. The patient has been NPO since midnight. The history has been reviewed and the history and physical is current. The signed consent was confirmed and placed in the patient chart. Patient imaging has been reviewed and is consistent with the diagnosis. Under mild sedation, the patient was brought into the operating room and placed on the table in the prone position. IV antibiotics were given by the anesthesia team as preoperative surgical prophylaxis. General sedation was then performed by the anesthesiateam. A pneumatic tourniquet was then placed about the right thigh. Popliteal block was performed by the anesthesia department. The operative extremity was then prepped and draped in the usual fashion. The extremity was then elevated and exsanguinated before the tourniquet was inflated to 325 mmHg. After inflation, the following procedure was then performed. Attention was directed to the posterior aspect of the right heel where a 6 cm incision was made using a #15 blade directly over the Achilles tendon midline. Dissection was carried down through subcutaneous superficial fascia to the level of the peritenon which was incised to expose the underlying Achilles tendon. Achilles tendon was split longitudinally and opened up to expose the underlying retrocalcaneal bone spur and Amanda's deformity. Osteotome was used to remove Amanda's deformity as well as retrocalcaneal bone spur. A power rasp was used to smooth edges of the calcaneus. The Achilles tendon was noted to have degeneration to the anterior surface. Degenerative tendon was excised and passed from the operative field. Intratendinous calcifications were also excised passed from the operative field. Site was irrigated with copious amounts of sterile saline. Speed bridge was applied to the posterior aspect of the calcaneus per manufacture protocol to reattach the Achilles tendon to the calcaneus. 2-0 FiberWire was then used to repair the Achilles tendon longitudinal incision. Again the incision was irrigated with sterile saline before attention was directed to closure. Deep tissue including peritenon was closed with 2-0 Vicryl followed by subcuticular closure with 3-0 Vicryl and skin closure with 3-0 nylon in horizontal mattress fashion. The tourniquet was let down and good hyperemic response was noted to all digits of the right foot. The incision was dressed with Xeroform, 4 x 4 gauze, Kerlix, Junior before being placed in cam boot The patient tolerated the procedure and anesthesia well and without complication. The patient was transported from the operating room to the recovery room with vital signs stable and vascular status intact to all digits of the right foot. The patient was given both written and verbal instructions to remain nonweightbearing to the operative extremity, to keep dressings/splint clean, dry and intact and to take pain medication as directed. The patient will follow-up in the outpatient setting at their scheduled appointment. The patient was discharged with my personal number and was instructed to call if any questions or issues should arise. They were discharged home once anesthesia criteria was met.
[2025-04-21] MEDS: HYDROcodone-acetaminophen 5-325 mg Tablet 1 TAB PO (10:02)
--- NOTE | 2025-04-21 11:05 | ANE.PACU2 ---
Inpatient post-anesthesia follow up: Airway intact: Yes Vital signs: Temperature 96.1 F Pulse Rate 84 Respiratory Rate 23 Blood Pressure 140/89 Pulse Oximetry 100 Oxygen Delivery Me thod Room Air Oxygen Flow Rate Fraction of Inspir ed Oxygen Hydration adequate: Yes Nausea and vomiting: No Pain level: 1 Mental status: Baseline
== END 2025-04-21 11:05 | disposition home or self-care (01) ==
PROVIDERS: PCP Family Medicine; Visit Provider Podiatrist Foot & Ankle Surgery
PROC: (CPT 27650; principal; 2025-04-21 07:00)
PROC: (CPT 28288; 2025-04-21 07:00)
DX: M76.61 Achilles tendinitis, right leg (principal); M77.31 Calcaneal spur, right foot; I10 Essential (primary) hypertension; F41.8 Other specified anxiety disorders; F17.200 Nicotine dependence, unspecified, uncomplicated
CPT/HCPCS: 27654; 28118; C1713; J0330; J0690; J1100; J2250; J2405; J2704; J2795; J3010; J3490; J7030; J9999

== ENCOUNTER → 2025-05-05 15:30 | Outpatient (BNVA) | payer OTHER, SELFPAY | PROVIDERS: PCP Family Medicine; Visit Provider Podiatrist Foot & Ankle Surgery | DX: M79.671 Pain in right foot (principal); M76.61 Achilles tendinitis, right leg; M77.51 Other enthesopathy of right foot and ankle; M24.571 Contracture, right ankle | CPT/HCPCS: 73630 ==

== ENCOUNTER 2025-06-17 13:38 | Outpatient (RCR) | payer OTHER, SELFPAY | END 2025-06-29 23:59 | disposition home or self-care (01) | LOC: SPT 13:38 | PROVIDERS: PCP Family Medicine; Visit Provider Podiatrist Foot & Ankle Surgery | DX: M76.61 Achilles tendinitis, right leg (principal) | CPT/HCPCS: 97161 ==

== ENCOUNTER 2025-06-19 06:00 | Day surgery (SDC) | payer OTHER, SELFPAY ==
[2025-06-19] VITALS (12 sets, daily range): BP systolic 113–147; BP diastolic 67–91; PULSE 66–89; RESP 16–18; TEMP 36.1–36.2; O2SAT 91–100; BMI 38.7
--- NOTE | 2025-06-19 06:13 | P.ANESASSM_ITS ---
Pre-Anesthetic Assessment Height/Weight: Height 5 ft 6 in Preop Diagnosis: Right shoulder rotator cuff tear Operation Date: 06/19/25 07:00 Proposed Procedures p RIGHT Shoulder Diagnostic and Surgical Arthroscopy(Right) - Justyn Ace DO s Subacromial Decompression(Right) - Justyn Ace DO s Acromioclavicular (AC) Joint Resection(Right) - Justyn Ace DO s Rotator Cuff Debridement Vs. Repair(Right) - Justyn Ace DO s POSSIBLE Biceps Tenotomy vs Tenodesis(Right) - Justyn Ace DO Was Beta Adrian taken within 24 hours: N/A Was Clonidine taken within 24 hours: N/A Social No alcohol and No tobacco Exam alert, oriented x 3, clear to auscultation bilaterally and regular rate & rhythm Airway Submandibular: within normal limits Cervical ROM: Other (Limited due to spinal fusion) Mallampati: Class II Dentition: full Anesthetic Plan ASA status: 3 Anesthesia: General and Regional (specify below) Other: Patient recently had foot surgery and states that when she woke up she had a fat lip and neck pain due to poor positioning during procedure NPO since yesterday evening History of hypertension on losartan S/p cervical spinal fusion Labs reviewed 03/20/2025 Previous EKG showing sinus bradycardia with HR of 55 Plan for GETA with video laryngoscopy and preop nerve block Medications/Allergies Home Medications ?Medication ?Instructions ?Recorded ?Confirmed ?Last Taken ?Type alprazolam 0.25 mg tablet 0.25 mg PO BID PRN anxiety # 60 tabs 01/17/23 06/18/25 03/05/25 Rx venlafaxine 150 mg tablet,extended 150 mg PO DAILY #90 tabs 11/12/24 06/18/25 06/18/25 Rx release 24 hr losartan 25 mg tablet 25 mg PO DAILY #90 tabs 05/0 01/2206/18/25 06/18/25 Rx knee scooter #1 ea 04/03/25 06/02/25 Unkn own Rx meclizine 25 mg tablet 25 mg PO BID PRN Vertigo 06/18/25 03/05/25 History alpha lipoic acid 100 mg capsule 100 mg PO DAILY 06/0206/18/25 06/18/25 History rizatriptan 10 mg disintegrating See Rx Instructions P O .COMPLEX 06/18/25 06/18/25 Unknown History tablet (Maxalt-DIRECTOR OF GRADUATE ADMISSIONS) PRN migrain h/a Allergies Allergy/AdvReac Type Severity Reaction Status Date / Time ciprofloxacin (From Cipro) Allergy Intermediate ALGY-Rash Verified 06/18/25 08:46 Sulfa (Sulfonamide Allergy Rash Verified 06/18/25 08:46 Antibiotics) [facility] Anesthesia Medical History Diverticulitis Depression with anxiety Surgical History History of bilateral breast reduction surgery 1997 S/P cervical spinal fusion History of hysterectomy History of cholecystectomy History of esophagogastroduodenoscopy History of colonoscopy (02/23/22) Family History Other Cancer Social History Smoking and tobacco/nicotine status: current some day tobacco/nicotine user Alcohol intake: never Substance/Drug Use: current Substance/Drug use frequency: daily Female Reproductive History Spontaneous abortions: No
[2025-06-19] MEDS: acetaminophen 1,000 MG/100 ML PIGGYBACK 400 MG IV (06:54)
--- NOTE | 2025-06-19 06:58 | W.PM.OPSFHP ---
Same Day Surgery H&P Indication for Procedure/HPI DATE OF PROCEDURE: June 19, 2025 CHIEF COMPLAINT/INDICATIONFOR SURGICAL PROCEDURE: Right shoulder AC joint arthritis, biceps tendinitis subacromial impingement, rotator cuff tear PREOP DIAGNOSIS: Right shoulder AC joint arthritis, biceps tendinitis subacromial impingemen PLANNED PROCEDURE: Operation Date: 06/19/25 07:00 Proposed Procedures p RIGHT Shoulder Diagnostic and Surgical Arthroscopy(Right) - Justyn Ace DO s Subacromial Decompression(Right) - Justyn Ace DO s Acromioclavicular (AC) Joint Resection(Right) - Justyn Ace DO s Rotator Cuff Debridement Vs. Repair(Right) - Justyn Ace DO s POSSIBLE Biceps Tenotomy vs Tenodesis(Right) - Justyn Ace DO Medications/Allergies* Home Medications ?Medication ?Instructions ?Recorded ?Confirmed ?Type meclizine 25 mg tablet 25 mg PO BID PRN Vertigo 04/21/25 06/18/25 History alpha lipoic acid 100 mg capsule 100 mg PO DAILY 06/02/25 06/18/25 History rizatriptan 10 mg disintegrating See Rx Instructions PO .COMPLEX 06/18/25 06/18/25 History tablet (Maxalt-PUGGER HELPER) PRN migrain h/a Allergies/Adverse Reactions Allergy/AdvReac Type Severity Reaction Status Date / Time ciprofloxacin (From Cipro) Allergy Intermediate ALGY-Rash Verified 06/18/25 08:46 Sulfa (Sulfonamide Allergy Rash Verified 06/18/25 08:46 Antibiotics) Current Medications: Generic Name Dose Route Start Last Admin Trade Name Freq PRN Reason Stop Dose Admin Sodium Chloride 1,000 mls @ 30 mls/hr 06/19/25 06:30 06/19/25 06:55 Sodium Chloride 0.9% IV 06/20/25 06:29 30 mls/hr .Q24H MANDY Administration Pertinent History/Comorbid Conditions* Medical History (Updated 04/20/25 @ 21:05 by Justyn Ace DO) Diverticulitis Depression with anxiety Surgical History (Updated 10/24/24 @ 08:41 by Roxanna Agrawal DO) History of bilateral breast reduction surgery 1997 S/P cervical spinal fusion History of hysterectomy History of cholecystectomy History of esophagogastroduodenoscopy History of colonoscopy (02/23/22) Family History (Updated 12/14/21 @ 11:05 by Lucina Wakefield MA) Cancer Social History Smoking and tobacco/nicotine status: current some day tobacco/nicotine user Alcohol intake: never Substance/Drug Use: current Substance/Drug use frequency: daily Pertinent Exam Findings alert, oriented x 3, operative site marked and procedure specific exam findings Please refer to anesthesias preoperative note for heart and lung findings Please refer to detailed orthopedic examination on 04/16/2025 listed below: Right Shoulder Exam: -Normal Cervical spine ROM -Negative Spurling's -Full active and passive ROM, Pain on end ranges -4/5 on Sol's with weakness -5/5 strength IR and ER with elbows at side -Positive Hawkin's impingement -Positive [place] Tannery's -Positive Speed's -Positive crossover arm Neer's test with AC joint TTP -TTP over upper trapezius, AC joint, biceps groove, lateral shoulder -No TTP over posterior shoulder Recommendations Risks and benefits of procedure reviewed and Patient/family agree to proceed Surgery/Procedure today Other Plans: Plan to proceed to the OR today for right shoulder diagnostic and surgical arthroscopy with subacromial decompression, acromioclavicular joint resection, rotator cuff debridement versus repair, and possible biceps tenotomy versus tenodesis. Patient understands Anzemet's procedure risk benefits complication alternative surgical nonsurgical treatment options. Understanding risk of surgery patient like to proceed with surgical invention. All questions answered at this time. Coding Level of Care Code Acute Code for Chg Fwd
[2025-06-19] MEDS: ceFAZolin 2,000 MG in sodium chloride 0.9% (plus) 50 ML 100 MG IV (07:01)
--- NOTE | 2025-06-19 07:29 | ANES.PROC ---
Anesthesia Procedures Procedure/Date: 06/19/25 Right interscalene peripheral nerve block for postoperative pain control Nerve Block ^: Nerve Block 1: Main Anesthesia: other (100 mcg fentanyl and 2 mg Versed) Time Out Performed: Yes Consent: requested by attending/covering physician and from patient Laterality: Right Nerve block location: interscalene Anesthesia monitors applied: pulse oximetry, EKG, BP cuff and oxygen Nerve block position: supine Anesthetic Used: ropivicaine 0.5% Amount of anesthesia used (mL): 30 Ultrasound used to: recognize landmarks Nerve Stimulator Used?: Yes Interscalene/Femoral BLK: other needle (pjunk 4inch) Injection: neg aspiration of heme Patient Tolerated Procedure: well Complications: none Additional Comments: Decadron 4 mg added to block
--- NOTE | 2025-06-19 08:47 | P.BOP_ITS ---
Date of Procedure: 06/19/2025 Surgeon: Justyn Ace DO Hat Finishing Materials Preparer(s): Jose Manuel Ace PA-C Procedure(s) performed: Right shoulder diagnostic and surgical arthroscopy with rotator cuff repair (small) Right shoulder diagnostic and surgical arthroscopy with biceps tenodesis Right shoulder diagnostic and surgical arthroscopy with subscapularis tendon debridement Right shoulder diagnostic and surgical arthroscopy with labral debridement Right shoulder diagnostic and surgical arthroscopy with subacromial decompression (acromioplasty/bursectomy) Right shoulder diagnostic and surgical arthroscopy with AC joint resection (distal clavicle excision) Findings of the procedure(s): Patient underwent procedure as planned without issues or complications. Estimated blood loss: 10 mL Specimen(s) removed: None Post-operative diagnosis: Right shoulder rotator cuff tear, biceps tendinitis/SLAP tear, partial 10% subscapularis tendon tearing, labral fraying, subacromial impingement, AC joint arthritis
--- NOTE | 2025-06-19 08:50 | P.OP_ITS ---
Operative Report Date of procedure: June 19, 2025 Surgeon: Justyn Ace DO [employer] Transplanter: Jose Manuel Ace PA-C: PA was necessary for assistance in this case with shoulder positioning to execute the procedure, assistance with instrumentation, as well as implant fixation for rotator cuff repair, assist with wound closure and dressing application. Procedure: Preoperative diagnosis: Right shoulder AC joint arthritis, biceps tendinitis subacromial impingement, rotator cuff tear Post-op diagnosis: Right shoulder rotator cuff tear, biceps tendinitis/SLAP tear, partial 10% subscapularis tendon tearing, labral fraying, subacromial impingement, AC joint arthritis Procedure done: Right shoulder diagnostic and surgical arthroscopy with rotator cuff repair (small) Right shoulder diagnostic and surgical arthroscopy with biceps tenodesis Right shoulder diagnostic and surgical arthroscopy with subscapularis tendon debridement Right shoulder diagnostic and surgical arthroscopy with labral debridement Right shoulder diagnostic and surgical arthroscopy with subacromial decompression (acromioplasty/bursectomy) Right shoulder diagnostic and surgical arthroscopy with AC joint resection (di stal clavicle excision) Surgeon: Justyn Ace DO Estimated blood loss: 10mL IV fluids: See anesthesia record Implants: Loop and tack biceps tenodesis kit 4.75 swivel lock Arthrex 4.75 swivel lock Arthrex scorpion and suture tape Complications: None Condition: stable Disposition: same day Brief History: Patient been seen and worked up in the outpatient setting for?right?shoulder pain.? Pt had an MRI which showed findings below.? Patient's failed conservative treatment and has weakness.? We talked about treatment options far as nonoperative and operative intervention. We talked about risk benefits complication alternatives surgical nonsurgical treatment options.? Understanding risk of surgery pt agrees to proceed with surgical intervention.? All questions have been answered at this time.? Patient elects proceed with surgery and consent obtained in preoperative holding area for right shoulder diagnostic and surgical arthroscopy with subacromial decompression, acromioclavicular joint resection, rotator cuff debridement versus repair, and possible biceps tenotomy versus tenodesis. MR/MR shoulder RT wo con* [id number] IMPRESSION: 1. High-grade bursal surface supraspinatus tendon tear. Near complete full- thickness tear just distal to the subacromial impingement. 2. Additional 5 mm insertion site tear of the infraspinatus tendon. 3. Moderate AC joint arthritis. 4. Distal biceps tendon calcific tendinitis. 5. Superior anterior labral tear with minimal extension into the biceps anchor. 6. No rotator cuff muscle atrophy or edema. Procedure: Patient seen evaluated in the preoperative holding area.? Consent reviewed and signed with patient.? Once again reviewed patient's MRI results as well as? planned surgical intervention.? Correct extremity marked.? Patient seen evaluated by anesthesia department received regional anesthesia.? Once ready for surgery was taken back to the operative suite.? Patient then subsequently underwent anesthesia per the anesthesia department was transported onto the OR table.? Patient was then placed into a lateral decubitus position with a beanbag and was appropriately secured to the bed.? All bony prominences well-padded.? Patient then had the?right?upper extremity was then prepped and draped in standard orthopedic fashion.? Patient received appropriate preoperative antibiotics.? Final timeout performed. The?right?upper extremity was then held in hanging from traction utilizing sterile technique.? Next started with standard diagnostic and surgical arthroscopy with posterior portal position introduced arthroscope into the glenohumeral joint.? Visualized the glenohumeral joint I then introduced a spinal needle within the?rotator?cuff interval to confirm appropriate anterior portal placement.? Once this was confirmed I then made my small incision and then introduced my arthroscopic shaver into the glenohumeral joint. After flushing the joint fluid, was clearly evident patient had biceps tendon tearing as well as Superior labral tear. Patient had appreciable unstable biceps anchor most pronounced in the superior labrum. Given there appears to be healthy intra-articular tendon plan was for an intra-articular biceps tenodesis at the superior portion as it enters the intertubercular groove. Thermal wand introduced into the rotator interval. I then release of the rotator interval to have appropriate visualization and the ability to perform biceps tenodesis. At this point I established a purple passport cannula which was introduced. Next I performed an Arthrex loop and tap biceps tenodesis. Passer was then made around the tendon luggage tag stitch around and then thru the tendon, I then utilized a thermal wand to release the biceps tendon at the anchor to perform with tenotomy. I then loaded with suture onto an Arthrex 4.75 swivel lock suture anchor. A punch was then placed in appropriate position at the entry point into the intertubercular groove just superior to the subscapularis tendon. Punch was then introduced to the appropriate depth. The suture loaded on the swivel lock was then advanced held under appropriate tension and shoulder lock anchor was then advanced and had excellent fixation. Excess suture was then cut biceps tenodesis was complete. I then utilized a thermal wand to seal the edges of the superior labrum. Next I evaluated the subscapularis tendon was found to have less than 10% partial fraying at this point time utilized gentle debridement with arthroscopic shaver and thermal wand to perform satisfactory debridement of rotator cuff subscapularis tendon. ?Next there was significant labral tearing at biceps anchor and circumferential.? ? I then subsequently utilized a a arthroscopic shaver and thermal wand to perform a labral debridement.? This point time I then visualized the glenohumeral joint.? The glenohumeral joint was found to have grade 2? chondromalacia throughout.? Axillary pouch was free of loose bodies from viewing the posterior portal.? Next a visualized the?rotator?cuff superiorly and there was found to be a small undersurface tearing of the supraspinatus tendon.? I utilized a spinal needle to debora this location.?? This completed my work within the glenohumeral joint all fluid was suctioned free of the joint.? ?Next I reintroduced the arthroscope posteriorly.? And went to the subacromial space.? I established my lateral working portal at the site of which my spinal needle was marking of the?rotator?cuff tear.? Thermal wand was then introduced laterally and then I subsequently performed extensive bursectomy of the subacromial space.? Patient had a large anterior bone spur.? At this point time I proceeded with my AC joint resection thermal wand was used and track to the an terior edge of the acromion and then tracked all the way to the AC joint.? Once identified the AC joint this was very arthritic in nature.? Thermal wand was placed anteriorly to establish appropriate plane for AC joint resection.? Once appropriate margins and anterior inferior and anterior capsule was released I then introduced arthroscopic shaver and a bur and performed AC joint resection of both the acromion to cope plane at the AC joint and a distal clavicle resection was then performed totaling 1 cm in size and was confirmed.? This completed my AC joint resection and I then introduced the arthroscopic shaver laterally while continuing to view posteriorly.? I then performed an acromioplasty to complete my subacromial decompression prior to fixing the?rotator?cuff tear.? Next the arthroscopic shaver was then used previous spinal needle spot that is marked the small hole in the?rotator?cuff this was consistent with a small full- thickness tear.? Given the small size this did not need a medial and lateral row configuration as result my plan was for a horizontal mattress stitch with a single lateral row anchor.? As result I loaded and Arthrex scorpion with fiber tape and subsequently.? A horizontal mattress purchase appropriately spaced to the small tear of the supraspinatus tendon.? At this point in time and then introduced a shaver to debride the?rotator?cuff footprint and decorticate the footprint in preparation for repair, next I marked by swivel lock position.? Fiber tape was then loaded into a 4.75 swivel lock I then subsequently punched and then subsequently placement 4.75 swivel lock while maintaining appropriate tension and repair of?rotator?cuff and this was advanced with excellent fixation I then had a final confirmation of appropriate repair of the supraspina tus?rotator?cuff tendon tear.? Sutures were then cut with an arthroscopic suture cutter and subsequently evaluated the?rotator?cuff repair.? Repair was found to be satisfactory shoulder was taken through range of motion and the repair moved as a unit with no evidence of loss of fixation. ?I then switched the arthroscope to the lateral portal to confirm this tension- free repair.? I took the shoulder through range of motion and the?rotator?cuff repair was stable and moved as a unit. ?Next I then introduced the arthroscopic shaver posteriorly to complete my subacromial decompression appropriate complaining all the way up to the lateral edge of the acromion.? This completed the surgery.? All fluid was suctioned from the shoulder.? All instruments were removed.? The lateral incision was then closed with nylon stitches.? As well as the portal sites closed with portal nylon stitches.? Xeroform 4 x 4's ABD and tape was then applied to the?right?shoulder and was placed into a shoulder abduction pillow sling for?rotator?cuff repair.? Patient was then awakened from anesthesia and then taken back to PACU in stable condition.? Patient tolerated procedure without any issues. Disposition: Patient taken back in stable condition recovering well.? Dressings on in place clean dry and intact.? Will be nonweightbearing to the?right?upper extremity.? Follow?rotator?cuff repair protocol.? Patient to follow-up with me in the office in 2 weeks.? Patient will receive appropriate discharge instruction as well as pain medication postoperatively.? All questions answered.? We will contact the office for any questions or concerns.
--- NOTE | 2025-06-19 09:11 | PM.PACU ---
PACU note Narrative: Patient is a 60-year-old female just underwent a right shoulder arthroscopy. Patient transferred to PACU in stable condition. Pain is well controlled. shoulder Dressing on , dry and in place. Patient's operative arm is in a shoulder immobilizer. Patient is awake and alert and able to respond to my questions accordingly. Patient's fingers are warm with good perfusion. Normal cap refill under 2 seconds. Unable to assess further range of motion in arm due to sling. Sensation to fingers intact patient can wiggle fingers. Exam: awake Disposition: discharged
--- NOTE | 2025-06-19 09:32 | ANE.PACU2 ---
Inpatient post-anesthesia follow up: Airway intact: Yes Vital signs: Temperature 97 F Pulse Rate 69 Respiratory Rate 17 Blood Pressure 113/73 Pulse Oximetry 94 Oxygen Delivery Me thod Room Air Oxygen Flow Rate 2 Fraction of Inspir ed Oxygen Hydration adequate: Yes Nausea and vomiting: No Pain level: 1 Mental status: Baseline
[2025-06-19] MEDS: ondansetron 2 mg/ML SDV 2 mL 4 MG IVP (11:30)
== END 2025-06-19 11:50 | disposition home or self-care (01) ==
PROVIDERS: PCP Family Medicine; Visit Provider Student in an Organized Health Care Education/Training Program
PROC: (CPT 29805; principal; 2025-06-19 07:00)
PROC: (CPT 29826; 2025-06-19 07:00)
PROC: (CPT 29824; 2025-06-19 07:00)
PROC: (CPT 29827; 2025-06-19 07:00)
PROC: (CPT 29828; 2025-06-19 07:00)
DX: M19.011 Primary osteoarthritis, right shoulder (principal); M75.21 Bicipital tendinitis, right shoulder; M75.41 Impingement syndrome of right shoulder; M75.101 Unspecified rotator cuff tear or rupture of right shoulder, not specified as traumatic; S43.431A Superior glenoid labrum lesion of right shoulder, initial encounter; S46.811A Strain of other muscles, fascia and tendons at shoulder and upper arm level, right arm, initial encounter; X58.XXXA Exposure to other specified factors, initial encounter; I10 Essential (primary) hypertension; Z98.1 Arthrodesis status; F41.8 Other specified anxiety disorders; F17.200 Nicotine dependence, unspecified, uncomplicated
CPT/HCPCS: 29828; 29824; 29823; 64415; C1713 ×2; J0131; J0169; J0690; J1100; J1885; J2250; J2371; J2405; J2704; J3010; J3490; J7030; J9999

== ENCOUNTER 2025-06-30 05:00 | Outpatient (RCR) | payer OTHER, SELFPAY | END 2025-07-30 23:59 | disposition home or self-care (01) | LOC: SPT 05:00 | PROVIDERS: PCP Family Medicine; Visit Provider Podiatrist Foot & Ankle Surgery | DX: M76.61 Achilles tendinitis, right leg (principal) | CPT/HCPCS: 97110; 97140 ==